=== PATIENT | male | born 1950 | race Caucasian/White ===

== ENCOUNTER 2018-01-04 12:33 | Emergency (ER) | payer OTHER ==
[~2018-01-04] VITALS: Ht 172.7 cm; Wt 101.0 kg
[2018-01-04 12:37] VITALS: TEMP 36.8; Ht 172.7 cm; Wt 101.0 kg
--- NOTE | 2018-01-04 12:50 | EMERGENCY ROOM VISIT NOTE ---
History Report prepared by Gerard: Arlen Hughes Under the Supervision of: Dr. Susu Tena D.O. First contact with patient: 12:42 Chief Complaint: FOOT PAIN Stated Complaint: LEG/FOOT RED History of Present Illness The patient is a 67 year old male who presents to the Emergency Room with complaints of worsening left foot pain for the past 2 weeks. He is diabetic and states he first noticed a sore on the outside of his left foot 2 weeks ago. The area has become increasingly red and painful. He rates his discomfort as a 6/10 in severity. The patient denies any drainage or pus from the wound. He admits he did experience a MRSA infection several years ago. The patient denies any recent fevers, chills, cough or cold symptoms, knee pain, abdominal pain, nausea , vomiting or diarrhea. He admits his bilateral feet occasionally feel numb, and his left foot has felt more numb than normal recently. He states his sugars have been "good" recently. 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 A total of 10 systems reviewed and were otherwise negative. Past Medical & Surgical Medical Problems: (1) Diabetes mellitus Social History Smoking Status: Never Smoker Alcohol Use: none Drug Use: none Marital Status: single Housing Status: lives alone Occupation Status: retired Current/Historical Medications Scheduled Aspirin (Aspirin Ec), 81 MG PO DAILY Carvedilol (Coreg), 6.25 MG PO BID Doxycycline Monohydrate (Monodox), 100 MG PO BID Furosemide (Lasix), 20 MG PO DAILY Insulin Glargine (Lantus), 20 UNITS SC QPM Lisinopril (Prinivil), 5 MG PO HS Potassium Ext Rel (Klor-Con), 20 MEQ PO DAILY Simvastatin (Zocor), 80 MG PO QPM Allergies Coded Allergies: Penicillins (Unverified Allergy, Severe, ., 01/04/18) Physical Exam Vital Signs Date Time Temp Pulse Resp B/P (MAP) Pulse Ox O2 Delivery O2 Flow Rate FiO2 01/04/18 15:02 89 21 159/62 100 01/04/18 14:14 87 16 155/91 95 Room Air 01/04/18 12:37 36.8 92 20 171/85 95 Room Air Physical Exam GENERAL: alert, well appearing, well nourished, no distress, non-toxic EYE EXAM: normal conjunctiva, PERRL and EOM's grossly intact OROPHARYNX: no exudate, no erythema, lips, buccal mucosa, and tongue normal and mucous membranes are moist NECK: supple, no nuchal rigidity, no adenopathy, non-tender LUNGS: Clear to auscultation. Normal chest wall mechanics HEART: no murmurs, S1 normal and S2 normal ABDOMEN: abdomen soft, non-tender, normo-active bowel sounds, no masses, no rebound or guarding. BACK: Back is symmetrical on inspection and there is no deformity, no midline tenderness, no CVA tenderness. SKIN: no rashes and no bruising UPPER EXTREMITIES: upper extremities are grossly normal. LOWER EXTREMITIES: Left foot has an area of crusted over ulceration, to the lateral aspect just proximal to the 5th MTP, no active drainage or bleeding, no foul odor, digits 3 through 5 as well as the dorsal aspect of the foot distally have edema and mild erythema. DP and PT pulses are normal. Sensation is intact. No other bony tenderness. NEURO EXAM: Normal sensorium, cranial nerves II-XII grossly intact, normal speech, no gross weakness of arms, no gross weakness of legs. Medical Decision & Procedures ER Provider Diagnostic Interpretation: Radiology results have been interpreted by the radiologist and reviewed by me. LEFT FOOT CT CT DOSE: 149.60 mGy.cm HISTORY: Infection lateral aspect of left foot, r/o osteo/absess TECHNIQUE: Multiaxial CT images of the left foot were performed and reformatted in the sagittal and coronal plane only the use of intravenous contrast. A dose lowering technique was utilized adhering to the principles of ALARA. COMPARISON: None. FINDINGS: Vascular calcifications are noted. Punctate calcification within the subcutaneous soft tissues at the plantar surface of the foot at the fourth MTP joint. No metallic radiopaque foreign bodies. Mild subcutaneous edema within the lateral aspect of the ankle and within the dorsal lateral aspect of the foot. No loculated fluid collections to suggest an abscess. No bony erosions or cortical destruction to suggest osteomyelitis. No fracture or dislocation within the foot. IMPRESSION: 1. Nonspecific subcutaneous edema within the lateral ankle and dorsal lateral aspect of the foot. 2. No underlying bony abnormality to suggest osteomyelitis. 3. No loculated fluid collections to suggest an abscess. Electronically signed by: Nagi Paulson M.D. 01/04/2018 2:33 PM Laboratory Results 01/04/18 13:01 Red Blood Count 4.64, Mean Corpuscular Volume 91.4, Mean Corpuscular Hemoglobin 31.9, Mean Corpuscular Hemoglobin Concent 34.9, Mean Platelet Volume 9.1, Neutrophils (%) (Auto) 71.6, Lymphocytes (%) (Auto) 19.0, Monocytes (%) (Auto) 6.7, Eosinophils (%) (Auto) 2.3, Basophils (%) (Auto) 0.2, Neutrophils # (Auto) 7.37, Lymphocytes # (Auto) 1.96, Monocytes # (Auto) 0.69, Eosinophils # (Auto) 0.24, Basophils # (Auto) 0.02 01/04/18 13:01 Test 01/04/18 13:01 01/04/18 13:08 White Blood Count 10.30 K/uL (4.8-10.8) Red Blood Count 4.64 M/uL (4.7-6.1) Hemoglobin 14.8 g/dL (14.0-18.0) Hematocrit 42.4 % (42-52) Mean Corpuscular Volume 91.4 fL (80-100) Mean Corpuscular Hemoglobin 31.9 pg (25-34) Mean Corpuscular Hemoglobin Concent 34.9 g/dl (32-36) Platelet Count 205 K/uL (130-400) Mean Platelet Volume 9.1 fL (7.4-10.4) Neutrophils (%) (Auto) 71.6 % Lymphocytes (%) (Auto) 19.0 % Monocytes (%) (Auto) 6.7 % Eosinophils (%) (Auto) 2.3 % Basophils (%) (Auto) 0.2 % Neutrophils # (Auto) 7.37 K/uL (1.4-6.5) Lymphocytes # (Auto) 1.96 K/uL (1.2-3.4) Monocytes # (Auto) 0.69 K/uL (0.11-0.59) Eosinophils # (Auto) 0.24 K/uL (0-0.5) Basophils # (Auto) 0.02 K/uL (0-0.2) RDW Standard Deviation 41.7 fL (36.4-46.3) RDW Coefficient of Variation 12.5 % (11.5-14.5) Immature Granulocyte % (Auto) 0.2 % Immature Granulocyte # (Auto) 0.02 K/uL (0.00-0.02) Prothrombin Time 10.9 SECONDS (9.0-12.0) Prothromb Time International Ratio 1.0 (0.9-1.1) Anion Gap 7.0 mmol/L (3-11) Est Creatinine Clear Calc Drug Dose 60.6 ml/min Estimated GFR () 60.7 Estimated GFR (Non- 52.4 BUN/Creatinine Ratio 17.5 (10-20) Calcium Level 8.8 mg/dl (8.5-10.1) Total Bilirubin 0.4 mg/dl (0.2-1) Aspartate Amino Transf (AST/SGOT) 23 U/L (15-37) Alanine Aminotransferase (ALT/SGPT) 30 U/L (12-78) Alkaline Phosphatase 74 U/L (45-117) Total Protein 7.9 gm/dl (6.4-8.2) Albumin 3.5 gm/dl (3.4-5.0) Globulin 4.4 gm/dl (2.5-4.0) Albumin/Globulin Ratio 0.8 (0.9-2) Bedside Lactic Acid Venous 1.32 mmol/L (0.90-1.70) Laboratory results per my review. Medications Administered Medications (Trade) Dose Ordered Sig/Yamilex Route Start Time Stop Time Status Last Admin Dose Admin Ceftriaxone Sodium (Rocephin Inj) 1 gm NOW STAT IV 01/04/18 13:49 01/04/18 13:50 DC 01/04/18 14:14 1 GM ED Course 1245: The patient was evaluated in room A2. A complete history and physical exam was performed. 1349: Rocephin 1 gm IV. 1440: I reevaluated the patient. I used a sterile marking pen and outlined the erythema on his foot and ankle. I discussed that he will need to follow up with his PCP and the wound care clinic and he verbalized complete understanding and agreement. Medical Decision Prior records reviewed and summarized as above. Triage Nursing notes reviewed. The patient's history was concerning for swelling and redness of the skin. Differential diagnosis: Etiologies such as cellulitis, abscess, MRSA infection, DVT, osteomyelitis, necrotizing fasciitis, dermatitis, drug eruption, as well as others were entertained. No evidence of osteomyelitis or abscess, I do not suspect necrotizing fasciitis. Likely with evolving cellulitis due to wounds noted on lateral aspect of left foot. Patient started on IV antibiotics here and covered for possible MRSA given prior history with antibiotics at discharge. Discussed with him close follow-up with family doctor as well as with the wound care clinic. Discussed symptoms to watch and return for. Area was outlined with a sterile marking pen prior to discharge and patient given strict instructions to return if worse. Patient verbalized understanding of all results as well as plan, was well-appearing at time of discharge and all questions answered bedside. Medication Reconcilliation Current Medication List: was personally reviewed by me Blood Pressure Screening Patient's blood pressure: Elevated blood pressure Blood pressure disposition: Referred to PCP Impression Primary Impression: Cellulitis Additional Impressions: Foot pain Hyperglycemia Scribe Attestation The scribe's documentation has been prepared under my direction and personally reviewed by me in its entirety. I confirm that the note above accurately reflects all work, treatment, procedures, and medical decision making performed by me. Departure Information Dispostion Home / Self-Care Prescriptions Doxycycline Monohydrate (Monodox) 100 Mg Cap 100 MG PO BID, #14 CAP Prov: Susu Tena, DO 01/04/18 Referrals No Doctor, Assigned (PCP) Patient Instructions My [facility] Additional Instructions Please follow up with your family doctor the beginning of the week to recheck your foot. Please make an appointment to be seen by the wound clinic also. If you have any worsening redness, develop fevers or chills, increased pain, have a cold sensation to the foot or increased numbness and tingling, develop dizziness, nausea or vomiting, or any other new concerns please return the emergency room. Please check her blood sugar levels daily, and keep track of them to discuss with her family doctor. If they are very high or very low, please return the emergency room. Please take the antibiotics as prescribed, do not take them on an empty stomach, and please consider using an over-the- counter probiotic while you're on antibiotics. Problem Qualifiers Primary Impression: Cellulitis Site of cellulitis: extremity Site of cellulitis of extremity: lower extremity Laterality: left Qualified Codes: L03.116 - Cellulitis of left lower limb Additional Impressions: Foot pain Laterality: left Qualified Codes: M79.672 - Pain in left foot
[2018-01-04] MEDS ORDERED: OPTIRAY 320 IV PRN (13:00)
[2018-01-04] MEDS ORDERED: CARV6.252 PO (13:01)
[2018-01-04] MEDS ORDERED: SIMV80TA5 PO (13:01)
[2018-01-04] MEDS ORDERED: INSDGI SC (13:01)
[2018-01-04] MEDS ORDERED: ASPI81TA28 PO (13:01)
[2018-01-04] MEDS ORDERED: FURO-85 PO (13:01)
[2018-01-04] MEDS ORDERED: POTA20TA16 PO (13:01)
[2018-01-04] MEDS ORDERED: LISI5TAB PO (13:01)
[2018-01-04 13:25] LABS: BASO % 0.2 %; BASO ABS # 0.02 K/uL (0-0.2); EOS % 2.3 %; EOS ABS # 0.24 K/uL (0-0.5); HEMATOCRIT 42.4 % (42-52); HEMOGLOBIN 14.8 g/dL (14.0-18.0); IG# 0.02 K/uL (0.00-0.02); LYMPH ABS # 1.96 K/uL (1.2-3.4); MEAN CELL VOLUME 91.4 fL (80-100); MEAN CORPUSCULAR HEMOGLOBIN 31.9 pg (25-34); MEAN CORPUSCULAR HGB CONC 34.9 g/dl (32-36); MEAN PLATELET VOLUME 9.1 fL (7.4-10.4); MONO % 6.7 %; MONO ABS # 0.69 K/uL (0.11-0.59); NEUT % 71.6 %; NEUT ABS # 7.37 K/uL (1.4-6.5); PLATELET COUNT 205 K/uL (130-400); RED CELL DISTRIBUTION WIDTH CV 12.5 % (11.5-14.5); RED CELL DISTRIBUTION WIDTH SD 41.7 fL (36.4-46.3)
[2018-01-04] MEDS ORDERED: CEFTRIAXONE SOD INJ 1 GM ADDVIAL IV STA (13:49)
[2018-01-04 13:51] LABS: ALBUMIN 3.5 gm/dl (3.4-5.0); CALCIUM 8.8 mg/dl (8.5-10.1); CREATININE 1.4 mg/dl (0.60-1.40); POTASSIUM 4.6 mmol/L (3.5-5.1)
[2018-01-04 13:54] LABS: TOTAL PROTEIN 7.9 gm/dl (6.4-8.2)
--- NOTE | 2018-01-04 14:34 | DIAGNOSTIC IMAGING REPORT ---
LEFT FOOT CT CT DOSE: 149.60 mGy.cm HISTORY: infection lateral aspect of left foot, r/o osteo/absess TECHNIQUE: Multiaxial CT images of the left foot were performed and reformatted in the sagittal and coronal plane only the use of intravenous contrast. A dose lowering technique was utilized adhering to the principles of ALARA. COMPARISON: None. FINDINGS: Vascular calcifications are noted. Punctate calcification within the subcutaneous soft tissues at the plantar surface of the foot at the fourth MTP joint. No metallic radiopaque foreign bodies. Mild subcutaneous edema within the lateral aspect of the ankle and within the dorsal lateral aspect of the foot. No loculated fluid collections to suggest an abscess. No bony erosions or cortical destruction to suggest osteomyelitis. No fracture or dislocation within the foot. IMPRESSION: 1. Nonspecific subcutaneous edema within the lateral ankle and dorsal lateral aspect of the foot. 2. No underlying bony abnormality to suggest osteomyelitis. 3. No loculated fluid collections to suggest an abscess. Electronically signed by: Nagi Paulson M.D. 01/04/2018 2:33 PM Dictated Date/Time: 01/04/2018 2:28 PM
[2018-01-04] MEDS ORDERED: DOXY100C76 PO (14:54)
[2018-01-04 15:02] VITALS: BP 159/62; PULSE 89; O2SAT 100
== END 2018-01-04 15:05 | disposition home or self-care (01) ==
LOC: C.EDB 12:36 → C.EDA 15:05
DX: L03.116 Cellulitis of left lower limb (principal); E11.65 Type 2 diabetes mellitus with hyperglycemia; Z79.82 Long term (current) use of aspirin; Z79.4 Long term (current) use of insulin; Z79.899 Other long term (current) drug therapy; Z88.0 Allergy status to penicillin

== ENCOUNTER → 2018-02-07 | Outpatient (CLI) | payer OTHER ==
[~2018-02-07] MED LIST: ASPI81TA28 PO; CARV6.252 PO; CHOL400T PO; CINN500T PO; CLOP1TAB15 PO; FURO-85 PO; INSDGI SC; LISI5TAB PO; METF-384 PO; POTA20TA16 PO; SIMV80TA5 PO
[2018-02-07 16:47] LABS: HEMATOCRIT 40.4 % (42-52); MEAN CELL VOLUME 91.4 fL (80-100); MEAN CORPUSCULAR HEMOGLOBIN 31.7 pg (25-34); MEAN CORPUSCULAR HGB CONC 34.7 g/dl (32-36); MEAN PLATELET VOLUME 9.1 fL (7.4-10.4); PLATELET COUNT 227 K/uL (130-400); RED CELL DISTRIBUTION WIDTH CV 12.6 % (11.5-14.5); RED CELL DISTRIBUTION WIDTH SD 42.4 fL (36.4-46.3)
[2018-02-07 16:53] LABS: BLOOD UREA NITROGEN 32 mg/dl (7-18); CARBON DIOXIDE 22 mmol/L (21-32); CREATININE 1.48 mg/dl (0.60-1.40); GLUCOSE 139 mg/dl (70-99); POTASSIUM 4.8 mmol/L (3.5-5.1); PTT PATIENT 27.5 SECONDS (21.0-31.0); SODIUM 137 mmol/L (136-145)
--- NOTE | 2018-02-07 23:32 | CONSULTATION REPORT ---
DATE OF CONSULTATION: 02/07/2018 CONSULTATION REQUESTED BY: Dr. Matias Dill. REASON FOR CONSULTATION: Left lower extremity ulceration, peripheral arterial disease. HISTORY OF PRESENT ILLNESS: Mr. Vincent is a very pleasant 67-year-old man with a history of insulin-dependent diabetes, hypertension, dyslipidemia, coronary artery disease, status post CABG and coronary stenting back in 2009 as well as recently diagnosed peripheral arterial disease in the setting of left lower extremity ulceration. Cardiology consulted for further management and recommendations regarding PAD. The patient reports no history of lower extremity ulcerations up until approximately 1 month ago when noticed a small ulcer on the left lateral aspect of his foot, which has subsequently increased in size. He did present to the [facility] Emergency Department back in December due to ulceration. At that time, underwent a CT scan with no signs of osteomyelitis. He was referred to the wound care center where he has been treated since 01/24/2018. Since that time with standard wound care has had limited improvement in wound size. He had a lower extremity arterial duplex which was completed on 01/21/2018. This study showed TBI with severe to critical disease, right 0.35, left 0.27, and arterial duplex notable for occluded right SFA with single vessel run-off. On the left, he had 75-99% stenosis in the left distal SFA prior to a complete occlusion with some reconstitution in the proximal popliteal artery prior to another occlusion in the distal popliteal with occluded proximal posterior tibial, anterior tibial and peroneal arteries with only a few collaterals to the right posterior tibial. The patient denies any prior history of any peripheral endovascular intervention. No history of prior blood clots. PAST MEDICAL HISTORY: 1. Coronary artery disease, status post CABG, prior stenting in 2009 at [facility]. 2. Peripheral arterial disease as discussed above. 3. Lower extremity ulceration as discussed above. 4. Hypertension. 5. Insulin-dependent diabetes, followed by Dr. Schwartz. 6. Dyslipidemia. 7. Question ischemic cardiomyopathy, followed by Dr. Francois for his cardiac issues. SOCIAL HISTORY: The patient lives alone in [place], [place]. He is here today with his sister. 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 Denies ongoing tobacco use. FAMILY HISTORY: Denies premature coronary artery disease or sudden cardiac . REVIEW OF SYSTEMS: Ten point review of systems completed and otherwise negative unless listed in HPI. PHYSICAL EXAMINATION: VITAL SIGNS: Temperature 36.0, pulse 76, blood pressure 138/85. GENERAL: The patient appears comfortable, in no acute distress. HEENT: Sclerae are anicteric. Oropharynx is clear. Mucous members are moist. NECK: Supple with no lymphadenopathy. LUNGS: Clear to auscultation bilaterally. CARDIAC: He has a regular rate and rhythm. He has a well-healed midline incision. ABDOMEN: Obese but soft, nontender. EXTREMITIES: Cool. He has left lower extremity pallor with a large superficial ulceration over the lateral aspect of his left foot with a pink base and surrounding pale ring. DP and PT pulses are nonpalpable. NEUROLOGIC: Nonfocal. PSYCHIATRIC: He is alert and appropriate. DATA: Lower extremity arterial duplex as described in the HPI. LABORATORY DATA: White blood cell count 10.3, hemoglobin 14, platelets of 227. Sodium 137, potassium 4.8, BUN of 32, creatinine of 1.48. IMPRESSION AND PLAN: 1. Peripheral arterial disease. 2. Slow healing left lower extremity ulceration. 3. Poorly controlled diabetes, on insulin. 4. History of coronary artery disease and questionable ischemic cardiomyopathy. 5. Mild renal insufficiency, baseline creatinine around 1.4. Mr. Vincent was noted on recent arterial duplex to have severe peripheral arterial disease with TBI suggestive of severe to critical disease with limited perfusion. In that setting, he has a slow nonhealing ulceration involving a large aspect of the left lateral foot. In that setting, feel high likelihood of benefit from revascularization and feel should proceed toward that end. Have reviewed the patient's arterial duplex and disease appears to involve distal SFA as well as the distal popliteal and all 3 tibial arteries. With his complex multi-level disease will plan on a diagnostic peripheral angiogram to be completed next week for intervention planning purposes. We will also obtain a limited arterial duplex to evaluate for potential pedal access sites if were to need retrograde access. Pending findings on peripheral angiogram, would plan to proceed at a later time next week with endovascular intervention. Discussed this with the patient and his sister and they are willing to proceed. Thank you for allowing us to participate in the care of this patient. [facility]
== END | disposition home or self-care (01) ==
LOC: C.LABPBG 15:15
PROVIDERS: ATTEND Internal Medicine Interventional Cardiology
DX: Z01.818 Encounter for other preprocedural examination (principal)

== ENCOUNTER → 2018-02-10 | Day surgery (SDC) | payer OTHER ==
[~2018-02-10] VITALS: Ht 170.2 cm; Wt 95.0 kg
[~2018-02-10] MED LIST changes: +FENTANYL CITRATE INJ 50 MCG/1 ML 2 ML VIAL ONE; +HEPARIN SOD (PORCINE) 1000 UNIT/ML 10 ML VIAL ONE; +LIDOCAINE HCL 1% 20 ML VIAL ONE; +MIDAZOLAM HCL 1 MG/ML 2ML VIAL ONE; +NITROGLYCERIN 2% OINTMENT 30GM TUBE EXT ONE; +NITROGLYCERIN/D5W 100MCG/ML 20ML SYR ONE; +NiCARDipine HCL INJ 2.5 MG/ML 10 ML AMP ONE
[2018-02-10 07:12] VITALS: BP 144/81; PULSE 88; TEMP 36.8; O2SAT 96; Ht 170.2 cm; Wt 95.0 kg
--- NOTE | 2018-02-10 07:56 | History & Physical Bridge Note ---
H&P Re-Evaluation Bridge Note: I have examined the patient, reviewed the History & Physical and in the interval since the performance of the History & Physical I have noted the following changes of clinical significance: No changes noted
--- NOTE | 2018-02-10 07:57 | Pre Sedation Assessment ---
Pre Sedation Assessment General Date of Sedation: Feb 10, 2018. Vital Signs Past 12 Hours Date Time Temp Pulse Resp B/P (MAP) Pulse Ox O2 Delivery O2 Flow Rate FiO2 02/10/18 07:12 36.8 88 16 144/81 (102) 96 Room Air Review Cardiovascular: regular rate, rhythm, no edema Lungs: chest non-tender, lungs clear Pre-Sedation Airway Assessment Smoking Status: Never Smoker Hx of Sleep Apnea: No Hx of difficult intubation: No Short Thick Neck: Yes Thyro-mental Distance: < or =3 Finger Breadths Oral Cavity: Loose Teeth, Chipped Teeth Mallampati Classification: Class III ASA Classification: Class III NPO Status Date of Last Intake of Fluids: Feb 09, 2018 Time of Last Intake of Fluids: 2200 Date of Last Intake of Solids: Feb 09, 2018 Time of Last Intake of Solids: 2100 Procedure Planning Contraindications for Sedation: None Current Medications Reviewed: Yes Notes The planned sedation has been discussed with the patient. Informed Consent was obtained. I have identified the patient, determined the appropriateness of sedation and have assessed the patient immediately prior to the procedure. All medicine(s) and interventions are by my order.
--- NOTE | 2018-02-10 10:47 | Post Sedation Assessment ---
Post Sedation Assessment General Date of Sedation Feb 10, 2018. Vital Signs: Vital Signs Past 12 Hours Date Time Temp Pulse Resp B/P (MAP) Pulse Ox O2 Delivery O2 Flow Rate FiO2 02/10/18 07:12 36.8 88 16 144/81 (102) 96 Room Air Post Procedure Recovery Score Activity: (2) Moves 4 extremities * Respiration: (2) Deep breath/cough Circulation: (2) +/-20% PreAnes Value Consciousness: (2) Fully Awake Oxygen Saturation: (1) O2 needed for >90% Discharge Sedation Level of Care: Fast Track Phase II Post Sedation Plan On clinical assessment, the patient appears to have tolerated the sedation without complications. Patient is recovering as anticipated. Patient will continue to be monitored by nursing and may be discharged when sedation discharge criteria are met per below protocol. Upon Completions of procedure and additional 15 minutes continue every 5 minute vital signs and the P.A.R. score; then discharge to a Phase I or Fast Track to Phase II per the following guidelines: * Discharge Patient to appropriate Phase II area if PAR is 8 or greater or return to pre- procedure baseline. The post - procedure orders will be as directed. * If PAR score is less than 8 or not return to pre-procedure baseline then patient will follow Phase I monitoring till PAR is reached for Phase II. The Phase I may be done in procedure room or may call to secure a Phase I area. * If naloxone or flumazenil are used for reversal, hold in Phase I for an additional 60 -120 minutes before discharge to Phase II. Please call the Sedation Physician to re-evaluate and complete post-note for discharge to Phase II area. Do NOT discharge from procedure sedation or Phase 1 until post- sedation evaluation note is complete by procedure /sedation MD Sedation Discharge Instructions to be given to the patient at discharge to home.
--- NOTE | 2018-02-10 11:01 | DIAGNOSTIC IMAGING REPORT ---
ULTRASOUND LEFT LOWER EXTREMITY ARTERIAL CLINICAL HISTORY: Peripheral arterial disease. COMPARISON STUDY: No priors. TECHNIQUE: Real-time, grayscale, and color Doppler sonography of the arteries of the left lower extremity is performed from the popliteal artery to the foot. The examination was performed the casting house laborer with Dr. Barcenas at the bedside. FINDINGS: No flow was identified in the visualized left lower extremity arteries. There is no flow seen within the mid to distal popliteal artery, the anterior tibial artery, the posterior tibial artery, the peroneal artery, or the dorsalis pedis artery. Advanced atherosclerotic plaque is noted in the regional vessels. IMPRESSION: No significant flow is identified in the visualized left lower extremity arteries as detailed above. Dictated: 02/10/2018 10:14 AM Transcribed: 02/10/2018 11:01 AM [email or web address] Electronically signed by: Lex Lira M.D. 02/10/2018 11:08 AM Dictated Date/Time: 02/10/2018 10:14 AM
--- NOTE | 2018-02-10 11:15 | [facility] Operative Report ---
Operative Report Operative Date Feb 10, 2018. Pre-Operative Diagnosis Peripheral arterial disease Critical limb ischemia Post-Operative Diagnosis Peripheral arterial disease Procedure(s) Performed Bilateral lower extremity angiogram Surgeon Narinder Welder Gas Automatic Surgeon(s) Cory Estimated Blood Loss 15 Findings Abdominal Aorta -- Calcified aorta without significant stenosis or aneurysm. Renals - Left 70-80% ostial stenosis; Right 30-40% ostial stenosis Left lower extremity: Common iliac - Minimal disease External iliac - Minimal disease Internal iliac - Minimal disease SUPERVISOR SCREEN PRINTING - 40% stenosis with calcified nodule Profunda - Mild diffuse distal disease SFA - Diffuse mild to moderate proximal to mid disease. Distal SFA/popliteal - 80% stenosis prior to 99% stenosis at origin of popliteal artery; Distal popliteal - Occluded TPT - Occluded AT - Occluded, short segment or reconstitution proximally then occluded to foot PT - Occluded, short segment of distal reconstitution Peroneal - Occluded, short segment of mid vessel reconstitution then occluded to foot Right lower extremity: Common iliac - Minimal disease External iliac - Minimal disease Internal iliac - Minimal disease SUPERVISOR SCREEN PRINTING - Minimal disease Profunda - Minimal disease SFA - Mild proximal diffuse atherosclerosis, heavily calcified with 90% mid segment stenosis, occluded distal SFA, reconstitutes at junction of popliteal TPT - occluded AT - occluded PT - occluded Peroneal - reconstitutes in mid segment and continues to foot. SUMMARY: 1. Left lower extremity with subtotally occluded distal SFA disease, occluded distal popliteal artery. Tibial vessels occluded with limited collaterals to foot. 2. Right lower extremity with calcified occluded mid-distal SFA, occluded distal popliteal artery. Tibial vessels occluded with reconstitution of peroneal artery. 3. 90% ostial left renal artery stenosis Specimens None Drains None Anesthesia Type IV Sedat Cons RN Only Complication(s) none Disposition no construction or leak gang laborer holding area Indications Peripheral arterial disease Non-healing lower extremity ulceration Description of Procedure Right radial artery access 5Fr Abdominal angiography with pigtail. Selective angiography of bilateral lower extremities with MPA catheter placed to external iliac arteries TR Band placed for closure. I attest to the content of the Intraoperative Record and any orders documented therein. Any exceptions are noted below.
[2018-02-10 11:30] VITALS: BP 136/85; PULSE 84; O2SAT 95
--- NOTE | 2018-02-10 11:31 | Discharge Instructions ---
Discharge Instructions Procedure Procedure Date: Feb 10, 2018. Reason for Visit: *Angiogram* Pvd . Discharge Discharge Date: Feb 10, 2018. Discharge Diagnosis: Peripheral arterial disease Last Recorded Wt (Kilograms): 95 Medications Restart Stopped Medication(s): - HOLD METFORMIN FOR NEXT 5 DAYS - TAKE 1/2 SCHEDULED INSULIN THE NIGHT BEFORE PROCEDURE - DO NOT TAKE FUROSEMIDE THE MORNING OF PROCEDURE - OK TO TAKE ASPIRIN/PLAVIX MORNING OF PROCEDURE - CAN TAKE BLOOD PRESSURE MEDICINE MORNING OF PROCEDURE Anesthesia Post Anesthesia Instructions: If you have had General Anesthesia or IV Sedation: * Do not drive today. * Resume driving when surgeon permits. * Do not make important decisions or sign legal documents today. * Call surgeon for: 1. Temperature elevations greater than 101 degrees F. 2. Uncontrollable pain. 3. Excessive bleeding. 4. Persistent nausea and vomiting. 5. Medication intolerance (nausea, vomiting or rash). * For nausea and vomiting use only clear liquids such as: tea, soda, bouillon until nausea subsides, then gradually increase diet as tolerated. * If you have any concerns or questions, call your surgeon's office. If physician is unavailable and it is an emergency, call 911 or go to the nearest emergency room. Instructions Activity Recommendations: limitations as noted below Recommended Home Diet: resume previous diet, low sodium, low cholesterol Allergies: Coded Allergies: Penicillins (Unverified Allergy, Severe, ., 01/04/18) Follow Up Additional Instructions: ACTIVITY RECOMMENDATIONS: Excess manipulation of the wrist should be avoided for the next 24-48 hours. * No lifting over 2 pounds (approximately a 1/2 gallon of milk) with the utilized arm for 24 hours. * No strenuous activity such as bowling or tennis for 3 days. * Keep the site of the procedure covered with a bandage for 24 hours. *You may shower the day after the procedure. Do not take a tub bath or submerge the puncture site in water for the next 3 days. *Do not operate any motorized equipment for 3 days. SPECIAL CARE INSTRUCTIONS: The site may be slightly bruised and sore following your procedure. Should any of the following occur, contact the DrTalia who performed your procedure. 1. Redness/inflammation, swelling, chills, or fever, or colored drainage at procedure site within 3-7 days after your procedure. 2. Coldness, discoloration, ongoing numbness, severe pain, or swelling. Expect mild tingling of hand and tenderness at the puncture site for up to three days. If this persists beyond three days, or other symptoms develop, notify the Dr. who performed your procedure. BLEEDING: If the procedure site on your wrist begins to bleed, do not panic 1. Place 1 or 2 fingers firmly just slightly above the insertion site to stop the bleeding. You may be able to feel your pulse as you hold pressure. 2. Lift your finger after 5 minutes to see if the bleeding has stopped. 3. Once the bleeding has stopped, gently wipe the wrist area clean with a bandage. * If the bleeding from your wrist does not stop after 10 minutes, or if there is a large amount of bleeding or spurting, call 911 (do not drive yourself to the hospital). SKIN IRRITATION: * You may experience some redness and/or swelling in the area where radiation was administered. If any skin irritation occurs, please contact your family physician. FOLLOW UP VISIT: Keep any scheduled doctor appointments. Follow-up with: Return for endovascular intervention on Saturday02/10/2018. [place] Recommendations: Call your doctor if: * Temperature above 101 degrees * Pain not relieved by pain medicine ordered * There is increased drainage or redness from any incision * You have any unanswered questions or concerns. Your Doctors Instructions noted above were prepared by provider Lv Barcenas. Patient Signature Section: Patient Instructions Signature Page Pepe Carlton Patient (or Guardian) Signature/Date: I have read and understand the instructions given to me by my caregivers. Caregiver/RN/Doctor Signature/Date: The above-named patient and/or guardian has received patient instructions on this date. + Original Patient Signature Page (only) stays with chart. Please make copy for patient.
== END | disposition home or self-care (01) ==
LOC: C.CATH 06:45
PROVIDERS: ATTEND Internal Medicine Interventional Cardiology
DX: I73.9 Peripheral vascular disease, unspecified (principal); L97.929 Non-pressure chronic ulcer of unspecified part of left lower leg with unspecified severity; E11.9 Type 2 diabetes mellitus without complications; I10 Essential (primary) hypertension; E78.5 Hyperlipidemia, unspecified; I25.10 Atherosclerotic heart disease of native coronary artery without angina pectoris; Z95.1 Presence of aortocoronary bypass graft; Z95.5 Presence of coronary angioplasty implant and graft; I99.8 Other disorder of circulatory system

== ENCOUNTER 2018-02-12 05:39 | Day surgery (SDC) | payer OTHER ==
[~2018-02-12] VITALS: Ht 170.2 cm; Wt 95.4 kg
[2018-02-12] VITALS (8 sets, daily range): BP systolic 121–162; BP diastolic 73–94; PULSE 81–100; TEMP 36.6–37.2; O2SAT 94–98; Ht 170.2 cm; Wt 95.4 kg
[~2018-02-12 05:39] MED LIST changes: -CHOL400T PO; -CINN500T PO; -FENTANYL CITRATE INJ 50 MCG/1 ML 2 ML VIAL ONE; -HEPARIN SOD (PORCINE) 1000 UNIT/ML 10 ML VIAL ONE; -LIDOCAINE HCL 1% 20 ML VIAL ONE; -MIDAZOLAM HCL 1 MG/ML 2ML VIAL ONE; -NITROGLYCERIN 2% OINTMENT 30GM TUBE EXT ONE; -NITROGLYCERIN/D5W 100MCG/ML 20ML SYR ONE; -NiCARDipine HCL INJ 2.5 MG/ML 10 ML AMP ONE
[2018-02-12] MEDS ORDERED: NURSING VERBAL MED ORDER ONE (06:30)
[2018-02-12] MEDS ORDERED: SODIUM CHLORIDE 0.9% 1000ML 1,000 ML IV SCH ×2 (06:30→15:00)
[2018-02-12] MEDS ORDERED: CINN500T PO (06:39)
[2018-02-12] MEDS ORDERED: CHOL400T PO (06:39)
--- NOTE | 2018-02-12 06:46 | Pre Sedation Assessment ---
Pre Sedation Assessment General Date of Sedation: Feb 12, 2018. Review Cardiovascular: regular rate, rhythm, no edema Lungs: chest non-tender, lungs clear Pre-Sedation Airway Assessment Smoking Status: Never Smoker Hx of Sleep Apnea: No Hx of difficult intubation: No Short Thick Neck: No Thyro-mental Distance: > 3 Finger Breadths Oral Cavity: WNL Mallampati Classification: Class III ASA Classification: Class III NPO Status Date of Last Intake of Fluids: Feb 11, 2018 Time of Last Intake of Fluids: 0 Date of Last Intake of Solids: Feb 11, 2018 Time of Last Intake of Solids: 2000 Procedure Planning Contraindications for Sedation: None Current Medications Reviewed: Yes Notes The planned sedation has been discussed with the patient. Informed Consent was obtained. I have identified the patient, determined the appropriateness of sedation and have assessed the patient immediately prior to the procedure. All medicine(s) and interventions are by my order.
[2018-02-12] MEDS ORDERED: FENTANYL CITRATE INJ 50 MCG/1 ML 2 ML VIAL ONE ×2 (07:45→11:09)
[2018-02-12] MEDS ORDERED: NITROGLYCERIN 5 MG/ML 10 ML VIAL ONE (07:45)
[2018-02-12] MEDS ORDERED: NiCARDipine HCL INJ 2.5 MG/ML 10 ML AMP ONE (07:45)
[2018-02-12] MEDS ORDERED: MIDAZOLAM HCL 1 MG/ML 2ML VIAL ONE ×2 (07:46→11:08)
[2018-02-12] MEDS ORDERED: HEPARIN SOD (PORCINE) 1000 UNIT/ML 10 ML VIAL ONE ×2 (07:46→11:26)
[2018-02-12] MEDS ORDERED: NITROGLYCERIN/D5W 100MCG/ML 20ML SYR ONE (07:56)
[2018-02-12] MEDS ORDERED: MIDAZOLAM HCL 1 MG/ML 2ML VIAL IV ONE ×3 (08:40→11:11)
[2018-02-12] MEDS ORDERED: LIDOCAINE HCL 1% 20 ML VIAL INJ ONE (08:41)
[2018-02-12] MEDS ORDERED: FENTANYL CITRATE INJ 50 MCG/1 ML 2 ML VIAL IV ONE ×3 (08:50→11:11)
[2018-02-12] MEDS ORDERED: HEPARIN SOD (PORCINE) 1000 UNIT/ML 10 ML VIAL IV ONE ×2 (09:06→10:29)
[2018-02-12] MEDS ORDERED: ORM MISCELLANEOUS MED XX ONE ×3 (11:45→12:12)
[2018-02-12] MEDS ORDERED: IODIXANOL (VISIPAQUE) 270 MG/ML 150ML XX ONE (12:17)
[2018-02-12] MEDS ORDERED: CLOPIDOGREL BISULFATE 300 MG TAB PO STA (12:29)
[2018-02-12] MEDS ORDERED: MoRPHine SULFATE 2 MG/ML CARP IV PRN (12:30)
[2018-02-12] MEDS ORDERED: GLUCOSE 40% GEL 15 GM TUBE PO PRN (12:30)
[2018-02-12] MEDS ORDERED: ONDANSETRON INJ 2 MG/ML 2 ML VIAL IV PRN (12:30)
[2018-02-12] MEDS ORDERED: ASPIRIN 325 MG ECTAB PO ONE (12:30)
[2018-02-12] MEDS ORDERED: DEXTROSE 50% 50 ML SYR IV PRN (12:30)
[2018-02-12] MEDS ORDERED: ACETAMINOPHEN 325 MG TAB PO PRN (12:30)
[2018-02-12] MEDS ORDERED: GLUCAGON FOR INJ 1 MG VIAL SQ PRN (12:30)
[2018-02-12] MEDS ORDERED: GLUCOSE 10 TABS/TUBE PO PRN (12:30)
--- NOTE | 2018-02-12 12:37 | Post Sedation Assessment ---
Post Sedation Assessment General Date of Sedation Feb 12, 2018. Vital Signs: Vital Signs Past 12 Hours Date Time Temp Pulse Resp B/P (MAP) Pulse Ox O2 Delivery O2 Flow Rate FiO2 02/12/18 12:25 82 16 149/84 94 Room Air 02/12/18 12:20 Oxymask 02/12/18 12:15 Oxymask 02/12/18 12:10 Oxymask 02/12/18 12:05 Oxymask 02/12/18 12:00 Oxymask 02/12/18 11:55 Oxymask 02/12/18 11:50 Oxymask 02/12/18 11:45 Oxymask 02/12/18 11:40 Oxymask 02/12/18 11:35 Oxymask 6 02/12/18 11:30 Oxymask 02/12/18 11:25 Oxymask 02/12/18 11:20 Oxymask 02/12/18 11:15 Oxymask 02/12/18 11:10 Oxymask 02/12/18 11:05 Oxymask 02/12/18 11:00 Oxymask 02/12/18 10:55 Oxymask 02/12/18 10:50 Oxymask 02/12/18 10:45 Oxymask 02/12/18 10:40 Oxymask 02/12/18 10:35 Oxymask 02/12/18 10:30 Oxymask 02/12/18 10:25 Oxymask 02/12/18 10:20 Oxymask 02/12/18 10:15 Oxymask 02/12/18 10:10 Oxymask 02/12/18 10:05 Oxymask 02/12/18 10:00 Oxymask 02/12/18 09:55 Oxymask 02/12/18 09:50 Oxymask 02/12/18 09:45 Oxymask 02/12/18 09:40 Oxymask 02/12/18 09:35 Oxymask 02/12/18 09:30 Oxymask 02/12/18 09:25 Oxymask 02/12/18 09:20 Oxymask 02/12/18 09:15 Oxymask 02/12/18 09:10 Oxymask 02/12/18 09:05 Oxymask 02/12/18 09:00 Oxymask 02/12/18 08:55 Oxymask 02/12/18 08:50 Oxymask 02/12/18 08:45 77 13 168/82 95 Oxymask 2 02/12/18 08:40 80 18 166/78 99 Oxymask 2 02/12/18 08:15 82 16 181/84 96 Oxymask 2 02/12/18 06:42 37.2 81 18 140/76 (97) 96 Room Air Post Procedure Recovery Score Activity: (2) Moves 4 extremities * Respiration: (2) Deep breath/cough Circulation: (2) +/-20% PreAnes Value Consciousness: (2) Fully Awake Oxygen Saturation: (2) > 92% On Room Air Post Anesthesia Score: 10 Discharge Sedation Level of Care: Fast Track Phase II Post Sedation Plan On clinical assessment, the patient appears to have tolerated the sedation without complications. Patient is recovering as anticipated. Patient will continue to be monitored by nursing and may be discharged when sedation discharge criteria are met per below protocol. Upon Completions of procedure and additional 15 minutes continue every 5 minute vital signs and the P.A.R. score; then discharge to a Phase I or Fast Track to Phase II per the following guidelines: * Discharge Patient to appropriate Phase II area if PAR is 8 or greater or return to pre- procedure baseline. The post - procedure orders will be as directed. * If PAR score is less than 8 or not return to pre-procedure baseline then patient will follow Phase I monitoring till PAR is reached for Phase II. The Phase I may be done in procedure room or may call to secure a Phase I area. * If naloxone or flumazenil are used for reversal, hold in Phase I for an additional 60 -120 minutes before discharge to Phase II. Please call the Sedation Physician to re-evaluate and complete post-note for discharge to Phase II area. Do NOT discharge from procedure sedation or Phase 1 until post- sedation evaluation note is complete by procedure /sedation MD Sedation Discharge Instructions to be given to the patient at discharge to home.
--- NOTE | 2018-02-12 12:47 | [facility] Operative Report ---
Operative Report Operative Date Feb 12, 2018. Pre-Operative Diagnosis Peripheral arterial disease, critical limb ischemia Post-Operative Diagnosis peripheral arterial disease, critical limb ischemia Procedure(s) Performed Bilateral Lower Extremity Angiogram, Percutaneous Transluminal Angioplasty and Mechanical Atherectomy Left Distal Superficial Femoral Artery/Popliteal, Percutaneous Transluminal Angioplasty Left Anterior Tibial, Mechanical Closure Right Femoral Artery, Moderate Concious Sedation [address] Barcenas Crane [place] Surgeon(s) none Estimated Blood Loss 36 ml Findings See Operative report from 02/10/2018 for full details of patient's lower extremity angiography. Briefly patient found to have an occluded distal SFA, distal popliteal, AT, PT and peroneal. Peroneal fills distally via collaterals. Specimens none Drains None Anesthesia Type IV Sedat Cons RN Only Complication(s) none Disposition Telemetry Description of Procedure -ultrasound guided access of right MACHINIST 2ND SHIFT -up and over with HNK catheter -7Fr 45 cm destination sheath placed to left MACHINIST 2ND SHIFT -SFA lesions crossed with quickcross and glide-advantage wire -Distal popliteal crossed with glide-advantage and AT accessed with 0.14 command wire -Able to wire to distal AT with command, confianza wire -Corsair catheter advanced to distal vessel after ballooning with 1.5 balloon. -AT treated with prolonged 2.0 and 2.5 balloon inflations -distal popliteal treated with 4.0 balloon inflation -distal SFA/popliteal treated with orbital atherectomy (CSI 1.5 classic crown). -lesion pre-dilated with 5.0 balloon. -distal SFA/popliteal treated with 5.0 x 150 Medtronic TRAE. Post procedure good angiographic result with brisk inline flow to foot via AT. Preserved collateral flow to peroneal/?PT. No apparent complications. Right MACHINIST 2ND SHIFT closed with Mynx device. Total contrast 180 cc. Summary: 1. Successful atherectomy and angioplasty of left distal SFA/popliteal with drug -eluting balloon 2. Successful angioplasty of distal left popliteal and left AT. I attest to the content of the Intraoperative Record and any orders documented therein. Any exceptions are noted below.
[2018-02-12] MEDS ORDERED: IV FLUIDS COMPLETED PRN (14:45)
[2018-02-12] MEDS: INSULIN ASPART 100 UNITS/ML 3 ML PEN SC SCH ×2 (16:15→21:00)
[2018-02-12] MEDS ORDERED: INSULIN GLARGINE SOLOSTAR 100 UNITS/ML 3 ML PEN SC SCH (21:00)
[2018-02-12] MEDS ORDERED: LISINOPRIL 5 MG TAB PO SCH (21:00)
[2018-02-12] MEDS: CARVEDILOL 6.25 MG TAB PO SCH (21:00)
[2018-02-13 03:47] VITALS: BP 137/86; PULSE 96; TEMP 36.6; O2SAT 96
[2018-02-13 06:45] VITALS: BP 146/80; PULSE 92; TEMP 36.9; O2SAT 96
[2018-02-13] MEDS: INSULIN ASPART 100 UNITS/ML 3 ML PEN SC SCH ×2 (07:00→12:00)
[2018-02-13 08:10] LABS: HEMATOCRIT 40.4 % (42-52); HEMOGLOBIN 13.6 g/dL (14.0-18.0)
[2018-02-13 08:42] LABS: CALCIUM 8.9 mg/dl (8.5-10.1); CREATININE 1.04 mg/dl (0.60-1.40)
[2018-02-13] MEDS: CARVEDILOL 6.25 MG TAB PO SCH (08:56)
[2018-02-13] MEDS ORDERED: ASPIRIN 81 MG ECTAB PO SCH (09:00)
[2018-02-13] MEDS ORDERED: CLOPIDOGREL BISULFATE 75 MG TAB PO SCH (09:00)
[2018-02-13 10:53] VITALS: BP 128/79; PULSE 79; TEMP 36.6; O2SAT 95
--- NOTE | 2018-02-13 13:04 | Discharge Instructions ---
Discharge Instructions Procedure Procedure Date: Feb 13, 2018. Reason for Visit: Peripheral Vascular Disease. Discharge Discharge Date: Feb 13, 2018. Discharge Diagnosis: Peripheral vascular disease Last Recorded Wt (Kilograms): 95.400 Medications Restart Stopped Medication(s): Can resume Metformin 48 hours after procedure. OK to start back on Saturday. Anesthesia Post Anesthesia Instructions: Instructions Activity Recommendations: limitations as noted below Recommended Home Diet: low sodium, low cholesterol Allergies: Coded Allergies: Penicillins (Unverified Allergy, Severe, SEVERE RASH, 02/12/18) Follow Up Additional Instructions: ACTIVITY RECOMMENDATIONS: It is common to feel weak and fatigue for a few days. * Do not drive or operate any motorized equipment for the next 2 days. * Limit stair usage (2 or 3 trips a day only) for the next three days. * Do not lift anything heavier than 10 pounds for the next three days. * Do not engage in vigorous exercise or any sports for the next five days. * You may shower the day after your procedure, but do not immerse the area for three days. Cleanse the site gently with soap and water. SPECIAL CARE INSTRUCTIONS: * You may replace the pressure dressing or band-aid the morning after the procedure. * After your procedure, it is normal to have a small bruise or small lump at the site. Examine your site daily for any change in the bruise or lump, redness, swelling, drainage or numbness. Notify your doctor if any change. BLEEDING: * If there is a small amount of bleeding at the site, lie down and apply firm pressure with a clean cloth for ten minutes. When the bleeding stops, lie quietly keeping the procedure limb straight for six hours. Notify your doctor as soon as possible. * If the bleeding does not stop after ten minutes or if there is a large amount of bleeding or spurting, call 911 immediately. Continue to lie down and hold firm pressure until help arrives. SKIN IRRITATION: * You may experience some redness and/or swelling in the area where radiation was administered. If any skin irritation occurs, please contact your family physician. FOLLOW UP VISIT: Keep any scheduled doctor appointments. Follow-up with: Wound clinic as scheduled Dr. Barcenas in 2-3 weeks with repeat [facility] Recommendations: Call your doctor if: * Temperature above 101 degrees * Pain not relieved by pain medicine ordered * There is increased drainage or redness from any incision * You have any unanswered questions or concerns. Your Doctors Instructions noted above were prepared by provider Lv Barcenas. Patient Signature Section: Patient Instructions Signature Page Pepe Vincent Patient (or Guardian) Signature/Date: I have read and understand the instructions given to me by my caregivers. Caregiver/RN/Doctor Signature/Date: The above-named patient and/or guardian has received patient instructions on this date. + Original Patient Signature Page (only) stays with chart. Please make copy for patient.
[2018-02-13 13:08] VITALS: BP 128/79; PULSE 79; TEMP 36.6; O2SAT 95
== END 2018-02-13 13:56 | disposition home or self-care (01) ==
LOC: C.ACU 05:39 → C.2T 12:36 → ENRESERV 13:57
PROVIDERS: ADMIT Internal Medicine Interventional Cardiology; ATTEND Internal Medicine Interventional Cardiology
DX: I73.9 Peripheral vascular disease, unspecified (principal); I99.8 Other disorder of circulatory system; E11.9 Type 2 diabetes mellitus without complications; L97.929 Non-pressure chronic ulcer of unspecified part of left lower leg with unspecified severity; I10 Essential (primary) hypertension; E78.5 Hyperlipidemia, unspecified; I25.10 Atherosclerotic heart disease of native coronary artery without angina pectoris; Z95.1 Presence of aortocoronary bypass graft; Z79.4 Long term (current) use of insulin

== ENCOUNTER → 2018-02-26 | Outpatient (CLI) | payer OTHER ==
[~2018-02-26] MED LIST changes: +CHOL400T PO; +CINN500T PO; -METF-384 PO; +OPTIRAY 320 IV PRN; +POTA-639 PO; -POTA20TA16 PO; -SIMV80TA5 PO
--- NOTE | 2018-02-26 15:41 | DIAGNOSTIC IMAGING REPORT ---
LEFT FOOT CT CT DOSE: 317.67 mGy.cm HISTORY: Left foot fifth toe nonhealing wound. Assess for osteomyelitis. TECHNIQUE: Multiaxial CT images of the left foot were performed and reformatted in the sagittal and coronal plane without the use of contrast. A dose lowering technique was utilized adhering to the principles of ALARA. COMPARISON: Left foot CT 01/04/2018. FINDINGS: Extensive subcutaneous edema seen within the left ankle and foot. There is also skin thickening and suggestion of small skin ulcerations at the fifth toe/fifth MTP joint. No loculated fluid collections to suggest an abscess. No radiopaque foreign bodies. Vascular calcifications are noted. No definite areas of cortical destruction or erosions within the foot to suggest osteomyelitis. IMPRESSION: 1. No definite areas of cortical destruction or erosions within the foot to suggest osteomyelitis. 2. Diffuse subcutaneous edema within the left ankle/foot. 3. Soft tissue swelling within the left fifth toe/fifth MTP joint suggestive of a cellulitis. There may be a few small skin ulcerations at this location. No loculated fluid collections to suggest an abscess. Electronically signed by: Nagi Paulson M.D. 02/26/2018 3:40 PM Dictated Date/Time: 02/26/2018 3:33 PM
== END | disposition home or self-care (01) ==
LOC: C.CTS 14:05
PROVIDERS: ATTEND Physician Assistant
DX: S91.105A Unspecified open wound of left lesser toe(s) without damage to nail, initial encounter (principal); X58.XXXA Exposure to other specified factors, initial encounter

== ENCOUNTER 2019-08-29 11:04 | Inpatient (IN) ==
[2019-08-29] MEDS ORDERED: ALBUT/IPRATROP 3MG/0.5MG NEB 3 ML VIAL INH STA (11:17)
--- NOTE | 2019-08-29 11:38 | XRay Report ---
XR chest 1V portable HISTORY: 69 years-old Male Dyspnea acute shortness of breath COMPARISON: Chest radiograph 05/28/2018 TECHNIQUE: Portable AP view of the chest FINDINGS: Cardiac silhouette is enlarged, unchanged. Prior median sternotomy. There is mild pulmonary vascular congestion with chronic midlung and bibasilar interstitial coarsening. No pneumothorax, large pleural effusion or lobar airspace consolidation. Degenerative changes of the shoulders and spine. IMPRESSION: 1. Cardiomegaly with pulmonary vascular congestion. 2. Mild chronic interstitial coarsening. The above report was generated using voice recognition software. It may contain grammatical, syntax o r spelling errors. Electronically signed by: Paul Fleming M.D. 08/29/2019 11:37 AM
[2019-08-29 11:45] LABS: Basophils # (auto) 0.01 K/uL (0-0.2); Basophils % (auto) 0.1 %; Hematocrit (blood only) 42.7 % (42-52); Hemoglobin 14.1 g/dL (14.0-18.0); Immature Granulocytes # (auto) 0.09 K/uL (0.00-0.02); Immature Granulocytes % (auto) 0.9 %; Lymphocytes # (auto) 0.47 K/uL (1.2-3.4); Lymphocytes % (auto) 4.5 %; Mean Corpuscular Hemoglobin 32.6 pg (25-34); Mean Corpuscular Volume 98.6 fL (80-100); Mean Platelet Volume 9.7 fL (7.4-10.4); Monocytes # (auto) 1.19 K/uL (0.11-0.59); Monocytes % (auto) 11.5 %; Neutrophils # (auto) 8.59 K/uL (1.4-6.5); Nucleated RBC # (auto) 0.02 K/uL (0-0); Nucleated RBC % (auto) 0.2 %; Platelet Count 248 K/uL (130-400); RDW Coefficient of Variation 12.9 % (11.5-14.5); RDW Standard Deviation 46.7 fL (36.4-46.3); Red Blood Count 4.33 M/uL (4.7-6.1); White Blood Count 10.35 K/uL (4.8-10.8)
[2019-08-29 12:01] LABS: INR 1.2 (0.9-1.1); Partial Thromboplastin Time 28.3 Seconds (21.0-31.0); Prothrombin Time 12.2 Seconds (9.0-12.0)
[2019-08-29 12:10] LABS: Albumin Globulin Ratio 0.6 (0.9-2); BUN Creatinine Ratio 23.8 (10-20); Bilirubin,Total 0.6 mg/dl (0.2-1); Calcium 8.4 mg/dl (8.5-10.1); Creatinine Clr Calc Pharmacy 49.7 ml/min; Est GFR (African American) 48.7; Globulin 4.8 gm/dl (2.5-4.0); Total Protein 7.8 gm/dl (6.4-8.2); Troponin I 0.068 ng/ml (0-0.045)
[2019-08-29 12:21] LABS: Influenza A virus by PCR Neg for Influ A (Neg); Influenza B virus by PCR Neg for Influ B (Neg)
[2019-08-29 12:21] LABS: Beta-Hydroxybutyrate 1.18 mg/dl (0.2-2.81)
[2019-08-29 12:27] LABS: Appearance Urine Clear (Clear); Bacteria Urine Automated Negative (Negative); Bilirubin Urine Negative (Negative); Blood Urine 2+ (Negative); Color Urine Yellow; Glucose Urine UA 3+ (Negative); Ketones Urine Negative (Negative); Leukocyte Esterase Urine Negative (Negative); Nitrite Urine Negative (Negative); Protein Urine 3+ (Negative); RBC Urine Automated 0-4 /hpf (0-4); Specific Gravity Urine 1.034 (1.000-1.030); Urobilinogen Urine Negative (Negative)
[2019-08-29 12:36] LABS: D Dimer 880 ug/L FEU (0-500)
[2019-08-29] MEDS ORDERED: SODIUM CHLORIDE 0.9% 1000ML 2,000 ML IV ONE (12:41)
[2019-08-29] MEDS ORDERED: OPTIRAY 320 125ml IV PRN (12:49)
[2019-08-29] MEDS ORDERED: LEVOFLOXACIN/D5W 750 MG/150 ML BAG IV SCH ×2 (13:00→15:45)
--- NOTE | 2019-08-29 13:05 | CT Scan Report ---
CT angio chest PE protocol CT DOSE: 742.55 mGy.cm HISTORY: 69 years-old Male with hypoxic and PE. Acute shortness of breath TECHNIQUE: Multiple CTA images of the chest were obtained after the intravenous administration of 118 ml Optiray 320. Coronal and sagittal MIPS were obtained from the axial data set and were submitted for review. All measurements were obtained according to NASCET criteria. A dose lowering technique w as utilized adhering to the principles of ALARA. COMPARISON: Chest radiograph of same day. FINDINGS: CTA: Mild cardiomegaly with prior median sternotomy and CABG. Extensive [place] coronary arterial calcifica tions are noted. No thoracic aortic aneurysm or dissection identified. Patency of the imaged great ve ssels. Pulmonary arterial tree is opacified to the level of the segmental branches. The distal segmen dereje branches and the subsegmental branches are not well evaluated secondary to contrast bolus timing and respiratory motion. No filling defects identified to suggest pulmonary thromboembolic disease. CT CHEST: Unremarkable thyroid. Nonspecific mildly prominent right hilar and subcarinal lymph nodes. No adenopa thy by CT size criteria. There is no pneumothorax or pleural effusion. Evaluation of the lung cherry is limited secondary to respiratory motion. Bilateral bronchial wall thickening with multifocal bibas ilar mucous plugging. Patchy bilateral reticular nodular and bronchovascular distribution of patchy a lveolar opacities with tree-in-bud nodules are noted within all segments bilaterally within a bibasil ar predominant distribution. Scattered calcified granulomata are noted. No overt pulmonary edema. Add itional micronodules are seen scattered about the fissures. No acute process of the imaged upper abdomen. Soft tissues are unremarkable. Degenerative changes of the shoulders and spine. No acute fracture. IMPRESSION: 1. No evidence of pulmonary thromboembolic disease. 2. Extensive bibasilar mucous plugging with bronchial wall thickening. 3. Multisegmental distribution of patchy alveolar and groundglass opacities with tree-in-bud, centril obular and bushra fissural nodules suggestive of a nonspecific infectious or inflammatory pneumonitis. 4. Prior granulomatous disease. 5. No adenopathy. 6. Cardiomegaly with prior median sternotomy and CABG. The above report was generated using voice recognition software. It may contain grammatical, syntax o r spelling errors. Electronically signed by: Paul Fleming M.D. 08/29/2019 1:03 PM
[2019-08-29] MEDS ORDERED: cefTRIAXone SODIUM 1,000 MG/50 ML BAG IV STA (13:10)
--- NOTE | 2019-08-29 13:29 | History & Physical Report ---
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 [employer]--possibly some level of underlying pulm disease related to occupation + ddimer with CTA neg for PE CTA does suggest possible PNA with noted mucous plugging Levaquin started in the ED, will continue Nebs with mucomyst Given steroids in the ED, will hold for now to avoid further hyperglycemia but may need t/c use if not improving CBC WNL Flu neg No hx of prior O2 use May benefit from formal PFTs once is has recovered from this episode given prior occupation (2) Elevated troponin: No prior results in system Possible demand ischemia in the setting of CAD Trop 0.068, serials pending EKG WNL Monitor on tele for now (3) Elevated serum creatinine: Appears to be chronic 1.6 on admission Last was 1.7 on 04/14/19 Monitor (4) 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 Yang and [facility] in the past Denies current or even recent Bactrim use Monitor (5) Diabetes mellitus: Holding metformin given contrast Lantus + SSI PRN A1c pending Hyperglycemia noted in the ED, given insulin, monitor Just finished course of outpt steroids BHA WNL (6) Hyperlipidemia: continue home meds (7) HTN (hypertension): continue home meds (8) CAD (coronary artery disease): s/p stents, CABG Aspirin 81mg, plavix (9) DVT prophylaxis: Heparin for DVT proph History of Present Illness Primary Care Provider: Pelon Renteria 69 y/o M c/o SOB and cough. Pt started feeling unwell around the end of July with a "chest cold". He was using OTC meds without much helps. He was seen in the walk-in clinic on Saturday and started on a zpack, steroid taper, and cough syrup with codeine. He initially felt somewhat improved with this, but then started to feel a return of SOB and cough. He finished these medications yesterday. When his breathing continued to worsen, he came to the ED. He has no other issues. He feels like he is coughing a lot, but cannot bring anything up. Pt denies fever, chest pain, abd pain, n/v/c/d, LE pain or swelling. Pt was started on O2 and given levaquin and steroids in the ED. He does feel somewhat improved. Per ED physician, pt was 87% on RA prior to interventions. Allergies Allergy/AdvReac Type Severity Reaction Status Date / Time Penicillins Allergy Severe SEVERE RASH Verified 04/16/19 08:24 Home Medications Home Medications Medication Instructions Recorded Confirmed Type Lactobacillus acidoph-L.bulgaricus 4 tab PO TID 07/14/18 08/29/19 History 1 million cell tablet aspirin 81 mg tablet,delayed 81 mg PO DAILY 07/14/18 08/29/19 History release carvedilol 6.25 mg tablet 6.25 mg PO BID 07/14/18 08/29/19 History cholecalciferol (vitamin D3) 400 400 units PO DAILY 07/14/18 08/29/19 History unit capsule cinnamon bark 500 mg capsule 500 mg PO DAILY cap 07/14/18 08/29/19 History clopidogrel 75 mg tablet 75 mg PO DAILY 07/14/18 08/29/19 History insulin glargine (U- 100) 100 27 units SQ DAILY ml 07/14/18 08/29/19 History unit/mL subcutaneous solution lisinopril 5 mg PO DAILY 04/15/19 08/29/19 History metformin 1,000 mg PO BID 04/15/19 08/29/19 History simvastatin 80 mg PO HS 04/15/19 08/29/19 History albuterol sulfate 2 puff INHALATION UD PRN 08/29/19 08/29/19 History Past Med/Surg History Medical History CAD (coronary artery disease) (Chronic) Diabetes 1.5, managed as type 1 (Chronic) Dyslipidemia (Chronic) HTN (hypertension) (Chronic) Surgical History S/P CABG (coronary artery bypass graft) (Chronic) Stented coronary artery (Chronic) H/O amputation of lesser toe (Resolved) S/P CABG (coronary artery bypass graft) (Resolved) Family History Father Myocardial infarction Other No pertinent family history Social History Communication Ability: Effective Visual Impairment: Limited Hearing Ability: Normal Bagel Maker Required: Yes Beliefs That Will Affect Care: None marital status: single Current Living Situation: Alone 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 Feels Safe at Home: Yes Smoking Status: Never smoker Second Hand Exposure: No ; Hx Alcohol Use: Yes Alcohol type: beer Alcohol Intake Frequency Comment: 1-2 times a week Hx Substance Use: No Review of Systems Review of Systems: Pertinent positives and negatives reviewed in HPI--all others negative Physical Exam Constitutional: WD/WN, vitals as above Eyes: normal visual cherry by confrontation and + anicteric sclerae Neck: normal visual inspection and trachea midline Respiratory: normal respiratory effort; no respiratory distress Au scultation: + diminished lung sounds and + crackles; no wheezes upper airway congestion Cardiovascular: Rate/Rhythm: regular rate and regular rhythm Gastrointestinal (Abdomen): Inspection/Auscultation: + abdomen distended Percussion/Palpation: abdomen nontender Musculoskeletal: Head/Neck/Chest: normocephalic and head atraumatic negative for edema, peripheral pulses intact Skin: no rashes, warm and dry Neurologic: awake; not confused Speech / Cognition: normal speech Psychiatric: A+Ox3, euthymic affect Results & Data Vital Signs (Past 12 Hours) Vital Signs Temp Pulse Pulse Resp BP Pulse Ox 08/29/19 12:30 86 24 161/97 H 96 08/29/19 12:00 85 24 160/96 H 99 08/29/19 11:41 80 27 H 100 08/29/19 11:34 85 85 23 153/93 H 100 08/29/19 11:19 97 08/29/19 11:07 36.5 C 94 H 24 113/72 88 L Diagnostic Findings CXR: pulm vasc congestion CTA: 1. No evidence of pulmonary thromboembolic disease. 2. Extensive bibasilar mucous plugging with bronchial wall thickening. 3. Multisegmental distribution of patchy alveolar and groundglass opacities with tree-in-bud, centrilobular and bushra fissural nodules suggestive of a nonspecific infectious or inflammatory pneumonitis. 4. Prior granulomatous disease. 5. No adenopathy. 6. Cardiomegaly with prior median sternotomy and CABG. ECG Rhythm: normal sinus Code Status & VTE Plan Code Status Full code PG Care Time/CCT Total # of Minutes Spent Total Time Spent with Patient: Total time spent is greater than 50% in coordination of care (as documented) at patient's floor/unit and/or counseling patient:
--- NOTE | 2019-08-29 14:32 | Emergency Department Note ---
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 He is accompanied by his brother who reports the patient has had dyspnea for the past week. The patient states he has never had anything like this before. He states he was at his PCP's office when they referred him to the ED. He notes he has a slight cough in the morning but denies any sore throat, chest pain, nausea, vomiting, diarrhea, fevers. Home Medications Home Medications Medication Instructions Recorded Confirmed Type Lactobacillus acidoph-L.bulgaricus 4 tab PO TID 07/14/18 08/29/19 History 1 million cell tablet aspirin 81 mg tablet,delayed 81 mg PO DAILY 07/14/18 08/29/19 History release carvedilol 6.25 mg tablet 6.25 mg PO BID 07/14/18 08/29/19 History cholecalciferol (vitamin D3) 400 400 units PO DAILY 07/14/18 08/29/19 History unit capsule cinnamon bark 500 mg capsule 500 mg PO DAILY cap 07/14/18 08/29/19 History clopidogrel 75 mg tablet 75 mg PO DAILY 07/14/18 08/29/19 History insulin glargine (U- 100) 100 27 units SQ DAILY ml 07/14/18 08/29/19 History unit/mL subcutaneous solution lisinopril 5 mg PO DAILY 04/15/19 08/29/19 History metformin 1,000 mg PO BID 04/15/19 08/29/19 History simvastatin 80 mg PO HS 04/15/19 08/29/19 History albuterol sulfate 2 puff INHALATION UD PRN 08/29/19 08/29/19 History Allergies Allergy/AdvReac Type Severity Reaction Status Date / Time Penicillins Allergy Severe SEVERE RASH Verified 04/16/19 08:24 Past Med/Surg History Medical History CAD (coronary artery disease) (Chronic) Diabetes 1.5, managed as type 1 (Chronic) Dyslipidemia (Chronic) HTN (hypertension) (Chronic) Surgical History S/P CABG (coronary artery bypass graft) (Chronic) Stented coronary artery (Chronic) H/O amputation of lesser toe (Resolved) S/P CABG (coronary artery bypass graft) (Resolved) Family History Father Myocardial infarction Other No pertinent family history Social History Communication Ability: Effective Visual Impairment: Limited Hearing Ability: Normal Watch Guard Gate Required: Yes Beliefs That Will Affect Care: None marital status: single Current Living Situation: Alone 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 and A total of 10 systems reviewed and were otherwise negative Physical Exam Vital Signs Vital Signs - 24 hr 08/29/19 11:07 08/29/19 11:19 08/29/19 11:34 Temperature 36.5 C Temperature Source Oral Sepsis Recent Fever Within 48 Hours No Sepsis New/Unexplained Change in Mental Status No Sepsis Action Taken by Nursing No Action Required Pulse Rate 94 H 85 Pulse Rate [Right Finger] 85 Pulse Rate from SpO2 Sensor 85 Respiratory Rate 24 23 Respiratory Effort / Characteristics Non-Labored Spontaneous Spontaneous Labored Spontaneous Respiratory Depth Normal Normal Respiratory Pattern Regular Regular Blood Pressure 113/72 153/93 H Blood Pressure Mean 85 113 Blood Pressure Position Sitting Pulse Oximetry 88 L 97 100 Oxygen Delivery Method Room Air Nasal Cannula Nebulizer Oxygen Flow Rate 2 2 08/29/19 11:41 08/29/19 12:00 08/29/19 12:30 Temperature Temperature Source Sepsis Recent Fever Within 48 Hours Sepsis New/Unexplained Change in Mental Status Sepsis Action Taken by Nursing Pulse Rate 80 85 86 Pulse Rate [Right Finger] Pulse Rate from SpO2 Sensor 81 85 Respiratory Rate 27 H 24 24 Respiratory Effort / Characteristics Respiratory Depth Respiratory Pattern Blood Pressure 160/96 H 161/97 H Blood Pressure Mean 117 118 Blood Pressure Position Pulse Oximetry 100 99 96 Oxygen Delivery Method Nebulizer Nasal Cannula Nasal Cannula Oxygen Flow Rate 2 2.5 08/29/19 13:00 08/29/19 13:30 08/29/19 14:00 Temperature Temperature Source Sepsis Recent Fever Within 48 Hours Sepsis New/Unexplained Change in Mental Status Sepsis Action Taken by Nursing Pulse Rate 84 85 Pulse Rate [Right Finger] Pulse Rate from SpO2 Sensor 84 85 82 Respiratory Rate 22 15 22 Respiratory Effort / Characteristics Respiratory Depth Respiratory Pattern Blood Pressure 143/101 H 118/86 133/80 Blood Pressure Mean 115 96 97 Blood Pressure Position Pulse Oximetry 94 95 96 Oxygen Delivery Method Nasal Cannula Nasal Cannula Nasal Cannula Oxygen Flow Rate 2.5 2.5 2.5 GENERAL: Sitting up in bed. Chronically ill appearing. Dyspneic in conversation EYE EXAM: normal conjunctiva, PERRL and EOM's grossly intact OROPHARYNX: no exudate, no erythema, lips, buccal mucosa, and tongue normal and mucous membranes are moist NECK: supple, no nuchal rigidity, no adenopathy, non-tender LUNGS: Wheezing bilaterally. HEART: no murmurs, S1 normal and S2 normal ABDOMEN: abdomen soft, non-tender, normo-active bowel sounds, no masses, no rebound or guarding. BACK: Back is symmetrical on inspection and there is no deformity, no midline tenderness, no CVA tenderness. SKIN: no rashes and no bruising UPPER EXTREMITIES: upper extremities are grossly normal. LOWER EXTREMITIES: No pitting edema. Calves equal bilateral NEURO EXAM: Normal sensorium, cranial nerves II-XII grossly intact, normal speech, no gross weakness of arms, no gross weakness of legs. Course ED COURSE: Vital signs were reviewed and showed normotensive The patients medical record was reviewed The above diagnostic studies were performed and reviewed. ED treatments and interventions as stated above. 1117: The patient was evaluated in room C9. A complete history and physical examination was performed. 1300: Discussed the patient's case with Dr. Nancy Martines, [facility] Hospitalist. The patient will be evaluated for further management. 1310: Upon reevaluation, the patient is feeling slightly better, but he states the neb did not help. I discussed my findings with the patient and he understands and agrees with the treatment plan. Based on the patients age, coexisting illnesses, exam and lab findings the decision to treat as an inpatient was made. The patient remained stable while under my care. The patient will be evaluated for further management. Administered Medications Sodium Chloride (Nss 1000ml) 2,000 mls @ 999 mls/hr IV .Q2H1M ONE Stop: 08/29/19 14:41 Last Admin: 08/29/19 12:55 Dose: 999 mls/hr Documented by: [id number] Levofloxacin/Dextrose (Levaquin/D5w) 750 mg in 150 mls @ 100 mls/hr IV Q24H SAMANTA Stop: 08/31/19 12:59 Last Admin: 08/29/19 13:08 Dose: 100 mls/hr Documented by: [id number] Ioversol (Optiray 320 125ml) 118 ml IV ONCE PRN PRN Reason: Interaction Checking Stop: 09/02/19 12:48 Last Admin: 08/29/19 12:50 Dose: 118 ml Documented by: [id number] Discontinued Medications Albuterol (Duoneb) 9 ml INH NOW STA Stop: 08/29/19 11:18 Last Admin: 08/29/19 11:33 Dose: 9 ml Documented by: [id number] Ceftriaxone Sodium (Rocephin) 1,000 mg in 50 mls @ 100 mls/hr IV NOW STA Stop: 08/29/19 13:39 Last Infusion: 08/29/19 13:57 Dose: 0 mls/hr Documented by: [id number] Admin: 08/29/19 13:23 Dose: 100 mls/hr Documented by: [id number] Methylprednisolone (Solumedrol) 40 mg IV NOW STA Stop: 08/29/19 12:57 Last Admin: 08/29/19 13:07 Dose: 40 mg Documented by: [id number] Medical Decision Making Differential Diagnosis Differential diagnoses includes but is not limited to pneumonia, bronchitis, COPD/Asthma exacerbation, pneumothorax, pulmonary embolism, congestive heart constance lure, acute coronary syndrome Medical Records Attestation: I reviewed the patient's medical records. Home Medications Current Medication List: was personally reviewed by me Laboratory Data Attestation: I reviewed the patient's lab results. Result diagrams: 08/29/19 11:29 08/29/19 11:29 Lab Results 08/29/19 08/29/19 08/29/19 Range/Units 11:29 11:29 11:29 WBC 10.35 (4.8-10.8) K/uL RBC 4.33 L (4.7-6.1) M/uL Hgb 14.1 (14.0-18.0) g/dL Hct 42.7 (42-52) % MCV 98.6 (80-100) fL MCH 32.6 (25-34) pg MCHC 33.0 (32-36) g/dL RDW Std Deviation 46.7 H (36.4-46.3) fL RDW Coeff of Sarah 12.9 (11.5-14.5) % Plt Count 248 (130-400) K/uL MPV 9.7 (7.4-10.4) fL Immature Gran % (Auto) 0.9 % Neut % (Auto) 83.0 % Lymph % (Auto) 4.5 % Green % (Auto) 11.5 % Eos % (Auto) 0.0 % Baso % (Auto) 0.1 % Immature Gran # (Auto) 0.09 H (0.00-0.02) K/uL Neut # (Auto) 8.59 H (1.4-6.5) K/uL Lymph # (Auto) 0.47 L (1.2-3.4) K/uL Green # (Auto) 1.19 H (0.11-0.59) K/uL Eos # (Auto) 0.00 (0-0.5) K/uL Baso # (Auto) 0.01 (0-0.2) K/uL Absolute Nucleated RBC 0.02 H (0-0) K/uL Nucleated RBC % (auto) 0.2 % PT 12.2 H (9.0-12.0) Seconds INR 1.2 H (0.9-1.1) APTT 28.3 (21.0-31.0) Seconds PTT Ratio 1.0 D-Dimer (0-500) ug/L FEU Sodium 134 L (136-145) mmol/L Potassium 5.0 (3.5-5.1) mmol/L Chloride 98 (98-107) mmol/L Carbon Dioxide 29 (21-32) mmol/L Anion Gap 7.0 (3-11) BUN 39 H (7-18) mg/dl Creatinine 1.66 H (0.6-1.4) mg/dl Est Cr Clr Drug Dosing 49.7 ml/min Est GFR ( Amer) 48.7 Est GFR (Non-Af Amer) 42.0 BUN/Creatinine Ratio 23.8 H (10-20) Glucose 475 H* (70-99) mg/dl POC Glucose (70-99) Calcium 8.4 L (8.5-10.1) mg/dl Total Bilirubin 0.6 (0.2-1) mg/dl AST 25 (15-37) U/L ALT 57 (12-78) U/L Alkaline Phosphatase 90 (45-117) U/L Troponin I 0.068 H* (0-0.045) ng/ml Total Protein 7.8 (6.4-8.2) gm/dl Albumin 3.0 L (3.4-5.0) gm/dl Globulin 4.8 H (2.5-4.0) gm/dl Albumin/Globulin Ratio 0.6 L (0.9-2) Beta-Hydroxybutyric Acd 1.18 (0.2-2.81) mg/dl Urine Color Urine Appearance (Clear) Urine pH (4.5-7.5) Ur Specific [place] (1.000-1.030) Urine Protein (Negative) Urine Glucose (UA) (Negative) Urine Ketones (Negative) Urine Blood (Negative) Urine Nitrite (Negative) Urine Bilirubin (Negative) Urine Urobilinogen (Negative) Ur Leukocyte Esterase (Negative) Urine WBC (Auto) (0-5) /hpf Urine RBC (Auto) (0-4) /hpf U Hyaline Cast (Auto) (0-5) /lpf U Epithel Cells (Auto) (0-5) /lpf Urine Bacteria (Auto) (Negative) Influenza Type A (PCR) (Neg) Influenza Type B (PCR) (Neg) 08/29/19 08/29/19 08/29/19 Range/Units 11:29 11:30 12:10 WBC (4.8-10.8) K/uL RBC (4.7-6.1) M/uL Hgb (14.0-18.0) g/dL Hct (42-52) % MCV (80-100) fL MCH (25-34) pg MCHC (32-36) g/dL RDW Std Deviation (36.4-46.3) fL RDW Coeff of Sarah (11.5-14.5) % Plt Count (130-400) K/uL MPV (7.4-10.4) fL Immature Gran % (Auto) % Neut % (Auto) % Lymph % (Auto) % Green % (Auto) % Eos % (Auto) % Baso % (Auto) % Immature Gran # (Auto) (0.00-0.02) K/uL Neut # (Auto) (1.4-6.5) K/uL Lymph # (Auto) (1.2-3.4) K/uL Green # (Auto) (0.11-0.59) K/uL Eos # (Auto) (0-0.5) K/uL Baso # (Auto) (0-0.2) K/uL Absolute Nucleated RBC (0-0) K/uL Nucleated RBC % (auto) % PT (9.0-12.0) Seconds INR (0.9-1.1) APTT (21.0-31.0) Seconds PTT Ratio D-Dimer 880 H* (0-500) ug/L FEU Sodium (136-145) mmol/L Potassium (3.5-5.1) mmol/L Chloride (98-107) mmol/L Carbon Dioxide (21-32) mmol/L Anion Gap (3-11) BUN (7-18) mg/dl Creatinine (0.6-1.4) mg/dl Est Cr Clr Drug Dosing ml/min Est GFR ( Amer) Est GFR (Non-Af Amer) BUN/Creatinine Ratio (10-20) Glucose (70-99) mg/dl POC Glucose (70-99) Calcium (8.5-10.1) mg/dl Total Bilirubin (0.2-1) mg/dl AST (15-37) U/L ALT (12-78) U/L Alkaline Phosphatase (45-117) U/L Troponin I (0-0.045) ng/ml Total Protein (6.4-8.2) gm/dl Albumin (3.4-5.0) gm/dl Globulin (2.5-4.0) gm/dl Albumin/Globulin Ratio (0.9-2) Beta-Hydroxybutyric Acd (0.2-2.81) mg/dl Urine Color Yellow Urine Appearance Clear (Clear) Urine pH 5.0 (4.5-7.5) Ur Specific [place] 1.034 H (1.000-1.030) Urine Protein 3+ H (Negative) Urine Glucose (UA) 3+ H (Negative) Urine Ketones Negative (Negative) Urine Blood 2+ H (Negative) Urine Nitrite Negative (Negative) Urine Bilirubin Negative (Negative) Urine Urobilinogen Negative (Negative) Ur Leukocyte Esterase Negative (Negative) Urine WBC (Auto) 1-5 (0-5) /hpf Urine RBC (Auto) 0-4 (0-4) /hpf U Hyaline Cast (Auto) 1-5 (0-5) /lpf U Epithel Cells (Auto) 5-10 H (0-5) /lpf Urine Bacteria (Auto) Negative (Negative) Influenza Type A (PCR) Neg for Influ A (Neg) Influenza Type B (PCR) Neg for Influ B (Neg) 08/29/19 Range/Units 12:52 WBC (4.8-10.8) K/uL RBC (4.7-6.1) M/uL Hgb (14.0-18.0) g/dL Hct (42-52) % MCV (80-100) fL MCH (25-34) pg MCHC (32-36) g/dL RDW Std Deviation (36.4-46.3) fL RDW Coeff of Sarah (11.5-14.5) % Plt Count (130-400) K/uL MPV (7.4-10.4) fL Immature Gran % (Auto) % Neut % (Auto) % Lymph % (Auto) % Green % (Auto) % Eos % (Auto) % Baso % (Auto) % Immature Gran # (Auto) (0.00-0.02) K/uL Neut # (Auto) (1.4-6.5) K/uL Lymph # (Auto) (1.2-3.4) K/uL Green # (Auto) (0.11-0.59) K/uL Eos # (Auto) (0-0.5) K/uL Baso # (Auto) (0-0.2) K/uL Absolute Nucleated RBC (0-0) K/uL Nucleated RBC % (auto) % PT (9.0-12.0) Seconds INR (0.9-1.1) APTT (21.0-31.0) Seconds PTT Ratio D-Dimer (0-500) ug/L FEU Sodium (136-145) mmol/L Potassium (3.5-5.1) mmol/L Chloride (98-107) mmol/L Carbon Dioxide (21-32) mmol/L Anion Gap (3-11) BUN (7-18) mg/dl Creatinine (0.6-1.4) mg/dl Est Cr Clr Drug Dosing ml/min Est GFR ( Amer) Est GFR (Non-Af Amer) BUN/Creatinine Ratio (10-20) Glucose (70-99) mg/dl POC Glucose 388 H* (70-99) Calcium (8.5-10.1) mg/dl Total Bilirubin (0.2-1) mg/dl AST (15-37) U/L ALT (12-78) U/L Alkaline Phosphatase (45-117) U/L Troponin I (0-0.045) ng/ml Total Protein (6.4-8.2) gm/dl Albumin (3.4-5.0) gm/dl Globulin (2.5-4.0) gm/dl Albumin/Globulin Ratio (0.9-2) Beta-Hydroxybutyric Acd (0.2-2.81) mg/dl Urine Color Urine Appearance (Clear) Urine pH (4.5-7.5) Ur Specific [place] (1.000-1.030) Urine Protein (Negative) Urine Glucose (UA) (Negative) Urine Ketones (Negative) Urine Blood (Negative) Urine Nitrite (Negative) Urine Bilirubin (Negative) Urine Urobilinogen (Negative) Ur Leukocyte Esterase (Negative) Urine WBC (Auto) (0-5) /hpf Urine RBC (Auto) (0-4) /hpf U Hyaline Cast (Auto) (0-5) /lpf U Epithel Cells (Auto) (0-5) /lpf Urine Bacteria (Auto) (Negative) Influenza Type A (PCR) (Neg) Influenza Type B (PCR) (Neg) Imaging Data Radiologist's Impression: Radiology results as stated below per my review and the radiologist's interpretation: XR chest 1V portable HISTORY: 69 years-old Male Dyspnea acute shortness of breath COMPARISON: Chest radiograph 05/28/2018 TECHNIQUE: Portable AP view of the chest FINDINGS: Cardiac silhouette is enlarged, unchanged. Prior median sternotomy. There is mild pulmonary vascular congestion with chronic midlung and bibasilar inte rstitial coarsening. No pneumothorax, large pleural effusion or lobar airspace consolidation. Degenerative changes of the shoulders and spine. IMPRESSION: 1. Cardiomegaly with pulmonary vascular congestion. 2. Mild chronic interstitial coarsening. The above report was generated using voice recognition software. It may contain grammatical, syntax or spelling errors. Electronically signed by: Paul Fleming M.D. 08/29/2019 11:[address] angio chest PE protocol CT DOSE: 742.55 mGy.cm HISTORY: 69 years-old Male with hypoxic and PE. Acute shortness of breath TECHNIQUE: Multiple CTA images of the chest were obtained after the intravenous administration of 118 ml Optiray 320. Coronal and sagittal MIPS were obtained from the axial data set and were submitted for review. All measurements were obtained according to NASCET criteria. A dose lowering technique was utilized adhering to the principles of ALARA. COMPARISON: Chest radiograph of same day. FINDINGS: CTA: Mild cardiomegaly with prior median sternotomy and CABG. Extensive kashia coronary arterial calcifications are noted. No thoracic aortic aneurysm or dissection identified. Patency of the imaged great vessels. Pulmonary arterial tree is opacified to the level of the segmental branches. The distal segmental branches and the subsegmental branches are not well evaluated secondary to contrast bolus timing and respiratory motion. No filling defects identified to suggest pulmonary thromboembolic disease. CT CHEST: Unremarkable thyroid. Nonspecific mildly prominent right hilar and subcarinal lymph nodes. No adenopathy by CT size criteria. There is no pneumothorax or pleural effusion. Evaluation of the lung cherry is limited secondary to respiratory motion. Bilateral bronchial wall thickening with multifocal bibasilar mucous plugging. Patchy bilateral reticular nodular and bronchovascular distribution of patchy alveolar opacities with tree-in-bud nodules are noted within all segments bilaterally within a bibasilar predominant distribution. Scattered calcified granulomata are noted. No overt pulmonary edema. Additional micronodules are seen scattered about the fissures. No acute process of the imaged upper abdomen. Soft tissues are unremarkable. Degenerative changes of the shoulders and spine. No acute fracture. IMPRESSION: 1. No evidence of pulmonary thromboembolic disease. 2. Extensive bibasilar mucous plugging with bronchial wall thickening. 3. Multisegmental distribution of patchy alveolar and groundglass opacities with tree-in-bud, centrilobular and bushra fissural nodules suggestive of a nonspecific infectious or inflammatory pneumonitis. 4. Prior granulomatous disease. 5. No adenopathy. 6. Cardiomegaly with prior median sternotomy and CABG. The above report was generated using voice recognition software. It may contain grammatical, syntax or spelling errors. Electronically signed by: Paul Fleming M.D. 08/29/2019 1:03 PM ECG Data Attestation: I personally reviewed and interpreted this ECG as follows: Indication: SOB/dyspnea Rate (beats per minute): 85 Rhythm: sinus rhythm Findings: + other (normal axis), + T-wave inversion (Septal) and + prolonged QT; no PVC Blood Pressure Blood Pressure Findings: Normal blood pressure Blood Pressure Disposition: did not require urgent referral MDM Narrative Patient is a 69-year-old male who presents the ER with a past medical history of CAD, hypertension, hyperlipidemia for shortness of breath referred in by PCP. Upon presentation is found to be hypoxic at 87% on room air. He was placed on 2 L nasal cannula with a pulse ox that went up to 95%. He did have diffuse wheezing. Patient was given neb treatments with no significant improvement. IV was established blood work was obtained and showed no significant leukocytosis or anemia. INR was unremarkable. D-dimer was elevated. BMP with a creatinine 1.66. Glucose was elevated at 475. Patient was given IV fluids. Trend down to 388. Troponin was elevated at 0.068. Beta hydroxybutyric was negative. Not consistent with DKA. UA was contaminated with multiple epithelial cells. CT PE was performed and showed pneumonitis. Patient was given IV Rocephin, IV Levaquin, and IV steroids. He was updated bedside. Discussed with the hospitalist. Do favor the elevated troponins likely secondary to demand ischemia. Patient denies any chest pain. EKG showed nonspecific ST wave changes. Impression & Plan Hypoxia, Pneumonitis, Elevated troponin Critical Care Time Critical Care Time: Yes Total Critical Care Time: 32 I have personally spent 32 minutes of critical care time in the direct managemen t of this patient. This includes bedside care, interpretation of diagnostic studies, and testing, discussion with consultants, patient, and family members, and other required patient management activities. This 32 minutes is in excess of all separately billable procedures. Discharge Plan Visit Data Chief Complaint: Shortness of Breath/Dyspnea Stated Complaint: FLUID IN LUNGS - CANT BREATHE ED Provider: Dung Abad Discharge Problem: Hypoxia, Pneumonitis, Elevated troponin Patient Disposition: Being Evaluated by Hospitalist Forms Stand Alone Forms: My [facility] Prescriptions Prescriptions: No Action aspirin 81 mg tablet,delayed release (DR/EC) 81 mg PO DAILY RF: 0 carvedilol 6.25 mg tablet 6.25 mg PO BID RF: 0 cholecalciferol (vitamin D3) 400 unit capsule 400 units PO DAILY RF: 0 cinnamon bark [Cinnamon] 500 mg capsule 500 mg PO DAILY RF: 0 clopidogrel [Plavix] 75 mg tablet 75 mg PO DAILY RF: 0 insulin glargine [Lantus U-100 Insulin] 100 unit/mL solution 27 units SQ DAILY RF: 0 Lactobacillus acidoph-L.bulgar [Floranex] 1 million cell tablet 4 tab PO TID RF: 0 simvastatin 80 mg Tablet 80 mg PO HS RF: 0 metformin 1,000 mg Tablet 1,000 mg PO BID RF: 0 lisinopril 5 mg Tablet 5 mg PO DAILY RF: 0 albuterol sulfate 90 mcg/actuation HFA aerosol inhaler 2 puff inhalation UD PRN (Reason: Wheezing) RF: 0 Referrals Referrals: Pelon Renteria [Primary Care Provider] - The scribe's documentation has been prepared under my direction and personally reviewed by me in its entirety. I confirm that the note above accurately reflects all work, treatment, procedures, and medical decision making performed by me.
[2019-08-29] MEDS ORDERED: ONDANSETRON INJ 2 MG/ML 2 ML VIAL IV PRN (15:45)
[2019-08-29] MEDS ORDERED: MAGNESIUM HYDROXIDE SUSP 30 ML UDC PO PRN (15:45)
[2019-08-29] MEDS ORDERED: CARBOHYDRATES FOR HYPOGLYCEMIA PO PRN (15:45)
[2019-08-29] MEDS ORDERED: GLUCOSE 40% GEL 15 GM TUBE PO PRN (15:45)
[2019-08-29] MEDS ORDERED: GLUCAGON FOR INJ 1 MG VIAL SQ PRN (15:45)
[2019-08-29] MEDS ORDERED: GLUCOSE 10 TABS/TUBE PO PRN (15:45)
[2019-08-29] MEDS ORDERED: ACETAMINOPHEN 325 MG TAB PO PRN (15:45)
[2019-08-29] MEDS ORDERED: DEXTROSE 50% 50 ML SYRINGE IV PRN (15:45)
[2019-08-29] MEDS ORDERED: ALBUTEROL HFA 8 GM INHALER INH PRN (15:45)
[2019-08-29] MEDS ORDERED: INSULIN ASPART 100 UNITS/ML 3 ML PEN SC STA (15:54)
[2019-08-29] MEDS: ALBUT/IPRATROP 3MG/0.5MG NEB 3 ML VIAL NEB SCH ×3 (17:33→23:16)
[2019-08-29] MEDS: LACTOBACILLUS ACIDOPHILUS (FLORANEX) TAB PO SCH ×2 (17:46→20:25)
[2019-08-29] MEDS: HEPARIN SOD 5,000 UNIT/0.5 ML VIAL SQ SCH ×2 (17:46→20:27)
[2019-08-29] MEDS: INSULIN ASPART 100 UNITS/ML 3 ML PEN SC SCH ×2 (17:47→20:29)
[2019-08-29] MEDS: ACETYLCYSTEINE 20% INHAL SOLN ***DISPENSED BY RESP. INH SCH (19:10)
[2019-08-29] MEDS: SIMVASTATIN 80 MG TAB PO SCH (20:26)
[2019-08-29] MEDS: carvediloL 6.25 MG TAB PO SCH (20:26)
[2019-08-30] MEDS: ALBUT/IPRATROP 3MG/0.5MG NEB 3 ML VIAL NEB SCH ×6 (03:01→23:48)
[2019-08-30] MEDS: HEPARIN SOD 5,000 UNIT/0.5 ML VIAL SQ SCH ×3 (05:38→21:15)
[2019-08-30 06:13] LABS: Basophils # (auto) 0.01 K/uL (0-0.2); Basophils % (auto) 0.1 %; Hematocrit (blood only) 40.6 % (42-52); Immature Granulocytes # (auto) 0.09 K/uL (0.00-0.02); Immature Granulocytes % (auto) 0.8 %; Lymphocytes # (auto) 0.78 K/uL (1.2-3.4); Lymphocytes % (auto) 7.2 %; Mean Corpuscular Hemoglobin 31.6 pg (25-34); Mean Corpuscular Volume 98.8 fL (80-100); Mean Platelet Volume 9.5 fL (7.4-10.4); Monocytes # (auto) 0.92 K/uL (0.11-0.59); Monocytes % (auto) 8.5 %; Neutrophils % (auto) 83.4 %; Platelet Count 257 K/uL (130-400); RDW Standard Deviation 46.9 fL (36.4-46.3); Red Blood Count 4.11 M/uL (4.7-6.1)
[2019-08-30 06:45] LABS: BUN Creatinine Ratio 36.2 (10-20); Calcium 8.6 mg/dl (8.5-10.1); Est GFR (African American) 57.3; Est GFR (Non-African American) 49.5; Potassium 4.8 mmol/L (3.5-5.1)
[2019-08-30] MEDS: ACETYLCYSTEINE 20% INHAL SOLN ***DISPENSED BY RESP. INH SCH ×2 (07:03→19:49)
[2019-08-30] MEDS: ASPIRIN 81 MG ECTAB PO SCH (08:24)
[2019-08-30] MEDS: LACTOBACILLUS ACIDOPHILUS (FLORANEX) TAB PO SCH ×3 (08:24→21:13)
[2019-08-30] MEDS: CHOLECALCIFEROL (VITAMIN D) 400 UNITS TABLET PO SCH (08:24)
[2019-08-30] MEDS: CLOPIDOGREL BISULFATE 75 MG TAB PO SCH (08:24)
[2019-08-30] MEDS: carvediloL 6.25 MG TAB PO SCH ×2 (08:24→21:13)
[2019-08-30] MEDS: INSULIN ASPART 100 UNITS/ML 3 ML PEN SC SCH ×4 (08:25→21:14)
[2019-08-30] MEDS: INSULIN GLARGINE SOLOSTAR 100 UNITS/ML 3 ML PEN SQ SCH (08:25)
[2019-08-30] MEDS ORDERED: NON-FORMULARY MEDICATION (Cinnamon Bark [Cinnamon] 500 MG) PO SCH (09:00)
[2019-08-30] MEDS ORDERED: lisinopriL 5 MG TAB PO SCH (09:00)
--- NOTE | 2019-08-30 12:04 | Hospitalist Progress Note ---
Date of Service August 30, 2019 Assessment & Plan (1) Acute respiratory failure with hypoxia: - Likely related to pneumonia vs. underlying lung disease. 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 - Influenza by PCR negative. - +D-dimer; CTA negative for PE but did show extensive bibasilar mucous plugging with bronchial wall thickening and tree-in-bud opacities with prior granuloma disease. - Received Levaquin in ER; start Ceftriaxone IV daily (completed Zpak as outpt, no indication for atypical coverage) - Mucomyst BID and Duonebs q4hr scheduled. - Flutter valve QID; consider vibration vest. - Will need inpatient pulmonary consult if no improvement; establish care with pulmonary as outpatient for PFTs. (2) PNA (pneumonia): - CT chest concerning for PNA. - Continue Ceftriaxone IV as noted above; completed Azithromycin as outpatient. - Mucomyst BID and Duonebs q4hr ATC. (3) Elevated troponin: - Trop peaked at 0.085 then trended down. - EKG was within normal limits. - Denies cardiac symptoms. (4) Elevated serum creatinine: - Baseline Cr 1.2 to 1.4; was 1.6 on admission, now improving. - No IV fluids indicated. - Renally dose all meds - can continue JOSIAH-I unless renal function is trending up. 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 - Has followed with wound care in the past. (6) Diabetes mellitus: - Holding home Metformin as inpt. - A1C is pending. - SSI and Lantus coverage. Consider pharmacy consult (recently completed outpt steroids, may have steroid induced hyperglycemia) (7) Hyperlipidemia: - Continue home statin and ASA as prescribed. (8) HTN (hypertension): - Continue home Coreg 6.25 mg BID, Lisinopril 5 mg daily as prescribed. (9) CAD (coronary artery disease): - S/p CABG and stent placement in 2009. - Continue Plavix, ASA, statin, Lisinopril, Coreg as prescribed. - Did have mildly elevated troponin, no other cardiac issues during this admission. (10) Peripheral vascular disease: - S/p stenting of left superficial femoral artery [place] [address] Barcenas. - Continue Plavix, statin, ASA as prescribed - plan to transition to Xarelto 6 months post procedure per last cardiology note. (11) DVT prophylaxis: - Heparin q8hr. Dispo: Med/surg with tele for treatment of acute hypoxia and PNA. Supervising Physician Co-Signing Physician Notes Chart reviewed, case discussed with Isabell Timmons PAC. Agree with decision making and plan. Care as above. Subjective Pt. has increased SOB, both at rest and with exertion. Has a non-productive cough with audible wheezing. Is on 2L via NC -- on room air at home. Will continue treatment for PNA, expect improvement over next 1-2 days. Review of Systems Review of Systems: All systems reviewed & are unremarkable except as noted in HPI & below Constitutional: no fever, no chills, no fatigue and no weakness Respiratory: + cough, + dyspnea, + dyspnea on exertion and + wheezing Cardiovascular: no chest pain, no palpitations and no edema Gastrointestinal: no abdominal pain, no nausea, no vomiting and no constipation Genitourinary: no difficulty urinating Musculoskeletal: no back pain and no joint pain Integumentary: no non-healing lesions Physical Exam Physical Exam: General: Resting comfortably HEENT: NC/AT; PERRLA with EOMI; [place] conjunctiva, MMM. No erythema of posterior pharynx Neck: Supple and nontender Cardiac: RRR Lungs: on 2L via NC; Abdomen: Bowel normoactive X 4; Nontender to palpation Extremities: Warm. No edema present Neuro: No focal weakness Skin: No rash Results & Data Vital Signs (Past 12 Hours) Vital Signs Temp Pulse Resp BP BP Pulse Ox 08/30/19 11:56 36.8 C 65 20 111/57 L 96 08/30/19 11:06 79 20 95 08/30/19 08:07 36.7 C 68 22 131/79 98 08/30/19 07:06 20 94 08/30/19 04:00 36.8 C 79 24 147/79 H 93 08/30/19 03:01 77 20 95 PG Care Time/CCT Total # of Minutes Spent Total Time Spent with Patient: Total time spent is greater than 50% in coordination of care (as documented) at patient's floor/unit and/or counseling patient:
[2019-08-30] MEDS: cefTRIAXone SODIUM 2,000 MG in DEXTROSE 5% 50 ML IV SCH (13:36)
[2019-08-30] MEDS: SIMVASTATIN 80 MG TAB PO SCH (21:14)
[2019-08-31] MEDS: ALBUT/IPRATROP 3MG/0.5MG NEB 3 ML VIAL NEB SCH ×6 (02:58→23:35)
[2019-08-31] MEDS: HEPARIN SOD 5,000 UNIT/0.5 ML VIAL SQ SCH ×3 (05:12→21:15)
[2019-08-31 06:08] LABS: Hematocrit (blood only) 40.8 % (42-52); Hemoglobin 13.2 g/dL (14.0-18.0); Mean Corpuscular Hemoglobin 31.9 pg (25-34); Mean Corpuscular Hgb Conc 32.4 g/dL (32-36); Mean Corpuscular Volume 98.6 fL (80-100); Mean Platelet Volume 9.4 fL (7.4-10.4); Platelet Count 297 K/uL (130-400); RDW Coefficient of Variation 12.9 % (11.5-14.5); RDW Standard Deviation 46.5 fL (36.4-46.3); Red Blood Count 4.14 M/uL (4.7-6.1); White Blood Count 13.35 K/uL (4.8-10.8)
[2019-08-31 06:45] LABS: BUN Creatinine Ratio 35.2 (10-20); Calcium 8.2 mg/dl (8.5-10.1); Creatinine Clr Calc Pharmacy 47.8 ml/min; Est GFR (Non-African American) 39.7; Potassium 4.8 mmol/L (3.5-5.1)
[2019-08-31 07:04] LABS: Estimated Average Glucose 226 mg/dl; Hemoglobin A1C 9.5 % (4.5-5.6)
[2019-08-31] MEDS: ACETYLCYSTEINE 20% INHAL SOLN ***DISPENSED BY RESP. INH SCH ×2 (07:09→19:17)
[2019-08-31] MEDS: INSULIN ASPART 100 UNITS/ML 3 ML PEN SC SCH ×4 (08:38→21:11)
[2019-08-31] MEDS: SODIUM CHLOR 0.45% + 20MEQ KCL 20 MEQ/1,000 ML BAG IV SCH ×3 (08:55→23:51)
[2019-08-31] MEDS: carvediloL 6.25 MG TAB PO SCH ×2 (08:56→21:06)
[2019-08-31] MEDS: ASPIRIN 81 MG ECTAB PO SCH (08:57)
[2019-08-31] MEDS: LACTOBACILLUS ACIDOPHILUS (FLORANEX) TAB PO SCH ×3 (08:59→21:07)
[2019-08-31] MEDS: INSULIN GLARGINE SOLOSTAR 100 UNITS/ML 3 ML PEN SQ SCH (09:01)
[2019-08-31] MEDS: CLOPIDOGREL BISULFATE 75 MG TAB PO SCH (09:03)
[2019-08-31] MEDS: CHOLECALCIFEROL (VITAMIN D) 400 UNITS TABLET PO SCH (09:04)
[2019-08-31] MEDS: cefTRIAXone SODIUM 2,000 MG in DEXTROSE 5% 50 ML IV SCH (14:18)
--- NOTE | 2019-08-31 19:34 | Hospitalist Progress Note ---
Date of Service August 31, 2019 Assessment & Plan (1) Acute respiratory failure with hypoxia: - Likely related to pneumonia vs. underlying lung disease. 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 - Influenza by PCR negative. - +D-dimer; CTA negative for PE but did show extensive bibasilar mucous plugging with bronchial wall thickening and tree-in-bud opacities with prior granuloma disease. - Received Levaquin in ER; start Ceftriaxone IV daily (completed Zpak as outpt, no indication for atypical coverage) -Continue ceftriaxone and supportive care. Continue to try to wean oxygen. (2) PNA (pneumonia): -Ceftriaxone as above, wean oxygen. (3) Elevated troponin: - Trop peaked at 0.085 then trended down. - EKG was within normal limits. - Denies cardiac symptoms. -Given his baseline coronary disease and significant physiologic and metabolic stress inflicted on one by a pneumonia, this almost certainly represents a mild degree of demand ischemia. (4) Elevated serum creatinine: -Appears to have baseline approximately stage III CKD. Creatinine was improving then worsening after IV fluids were stopped, but family notes that he is barely drinking. IV fluids resumed, encouraged oral intake. Follow-up basic metabolic panel. 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 (6) Diabetes mellitus: -Sugars reasonable, continue current care (7) Hyperlipidemia: - Continue home statin and ASA as prescribed. (8) HTN (hypertension): -Blood pressure is reasonable given the situation, continue current meds (9) CAD (coronary artery disease): - S/p CABG and stent placement in 2009. - Continue Plavix, ASA, statin, Lisinopril, Coreg as prescribed. - Did have mildly elevated troponin (see above mild demand ischemia), no other cardiac issues during this admission. (10) Peripheral vascular disease: - S/p stenting of left superficial femoral artery in [place] [address] Barcenas. - Continue Plavix, statin, ASA as prescribed - plan to transition to Xarelto 6 months post procedure per last cardiology note. (11) DVT prophylaxis: - Heparin q8hr. Dispo: Goal will be home hopefully in the next day or 2, with a goal of weaning oxygen as well as seeing improvement in creatinine. Subjective Generally feeling better. Does not drink much, family notes that is probably why his creatinine shahriar again, they note that they actually put him on glass water several hours ago and is only taken a few sips. They also note this is chronically the case. He notes generally his breathing feels better, he is still coughing, but overall is feeling better than before. Eating and drinking okay. Of note initially he and his brother got sick at the same time. Review of Systems Review of Systems: All systems reviewed & are unremarkable except as noted in HPI & below Physical Exam Physical Exam: In general he is awake and alert pleasant no distress. HEENT normal cephalic atraumatic mucous members moist. Lungs are coarse rhonchi throughout bilaterally but good air entry on inspiration no wheezing no rales good effort. Cardio is regular without rubs murmurs gallops. Extremities show no sinus clubbing or edema no calf tenderness. Skin shows no rashes no pallor or icterus. Results & Data Vital Signs (Past 12 Hours) Vital Signs Temp Pulse Pulse Pulse Resp BP BP 08/31/19 19:24 98.4 F 84 18 138/80 08/31/19 19:18 75 18 08/31/19 18:47 98.1 F 80 18 149/74 H 08/31/19 16:27 78 08/31/19 15:17 97.9 F 80 18 179/81 H 08/31/19 15:08 80 18 08/31/19 11:40 98.4 F 76 20 133/80 08/31/19 11:14 98.1 F 68 22 129/76 08/31/19 11:06 68 20 Pulse Ox 08/31/19 19:24 99 08/31/19 19:18 97 08/31/19 18:47 97 08/31/19 16:27 08/31/19 15:17 97 08/31/19 15:08 08/31/19 11:40 99 08/31/19 11:14 99 08/31/19 11:06 98 PG Care Time/CCT Total # of Minutes Spent Total Time Spent with Patient: Total time spent is greater than 50% in coordination of care (as documented) at patient's floor/unit and/or counseling patient:
[2019-08-31] MEDS: SIMVASTATIN 80 MG TAB PO SCH (21:10)
[2019-09-01] MEDS: ALBUT/IPRATROP 3MG/0.5MG NEB 3 ML VIAL NEB SCH ×3 (03:04→10:55)
[2019-09-01] MEDS: HEPARIN SOD 5,000 UNIT/0.5 ML VIAL SQ SCH ×2 (05:01→14:11)
[2019-09-01 06:44] LABS: Basophils # (auto) 0.01 K/uL (0-0.2); Basophils % (auto) 0.1 %; Eosinophils # (auto) 0.01 K/uL (0-0.5); Eosinophils % (auto) 0.1 %; Hematocrit (blood only) 41.1 % (42-52); Hemoglobin 13.5 g/dL (14.0-18.0); Immature Granulocytes # (auto) 0.18 K/uL (0.00-0.02); Immature Granulocytes % (auto) 1.3 %; Lymphocytes # (auto) 1.14 K/uL (1.2-3.4); Lymphocytes % (auto) 8.4 %; Mean Corpuscular Hemoglobin 32.1 pg (25-34); Mean Corpuscular Hgb Conc 32.8 g/dL (32-36); Mean Corpuscular Volume 97.9 fL (80-100); Mean Platelet Volume 9.4 fL (7.4-10.4); Monocytes # (auto) 1.39 K/uL (0.11-0.59); Monocytes % (auto) 10.2 %; Neutrophils # (auto) 10.84 K/uL (1.4-6.5); Neutrophils % (auto) 79.9 %; Platelet Count 246 K/uL (130-400); RDW Standard Deviation 46.2 fL (36.4-46.3); White Blood Count 13.57 K/uL (4.8-10.8)
[2019-09-01] MEDS: ACETYLCYSTEINE 20% INHAL SOLN ***DISPENSED BY RESP. INH SCH (07:20)
[2019-09-01 07:22] LABS: BUN Creatinine Ratio 31.3 (10-20); Calcium 8.4 mg/dl (8.5-10.1); Creatinine Clr Calc Pharmacy 67.3 ml/min; Est GFR (African American) 68.6; Est GFR (Non-African American) 59.2; Potassium 4.5 mmol/L (3.5-5.1)
[2019-09-01] MEDS: ASPIRIN 81 MG ECTAB PO SCH (08:02)
[2019-09-01] MEDS: LACTOBACILLUS ACIDOPHILUS (FLORANEX) TAB PO SCH ×2 (08:02→14:11)
[2019-09-01] MEDS: CLOPIDOGREL BISULFATE 75 MG TAB PO SCH (08:03)
[2019-09-01] MEDS: CHOLECALCIFEROL (VITAMIN D) 400 UNITS TABLET PO SCH (08:03)
[2019-09-01] MEDS: INSULIN GLARGINE SOLOSTAR 100 UNITS/ML 3 ML PEN SQ SCH (08:03)
[2019-09-01] MEDS: SODIUM CHLOR 0.45% + 20MEQ KCL 20 MEQ/1,000 ML BAG IV SCH (08:04)
[2019-09-01] MEDS: INSULIN ASPART 100 UNITS/ML 3 ML PEN SC SCH ×2 (08:05→12:02)
[2019-09-01] MEDS: carvediloL 6.25 MG TAB PO SCH (08:45)
[2019-09-01] MEDS ORDERED: cefTRIAXone SODIUM 2,000 MG in DEXTROSE 5% 50 ML IV STA (10:38)
--- NOTE | 2019-09-01 18:32 | Discharge Summary ---
Date of Service September 01, 2019 Admission HPI Per Admitting Provider 69 y/o M c/o SOB and cough. Pt started feeling unwell around the end of July with a "chest cold". He was using OTC meds without much helps. He was seen in the walk-in clinic on Saturday and started on a zpack, steroid taper, and cough syrup with codeine. He initially felt somewhat improved with this, but then started to feel a return of SOB and cough. He finished these medications yesterday. When his breathing continued to worsen, he came to the ED. He has no other issues. He feels like he is coughing a lot, but cannot bring anything up. Pt denies fever, chest pain, abd pain, n/v/c/d, LE pain or swelling. Pt was started on O2 and given levaquin and steroids in the ED. He does feel somewhat improved. Per ED physician, pt was 87% on RA prior to interventions. Principal Diagnosis Community-acquired pneumonia Discharge Exam General he is awake and alert pleasant no distress. HEENT normocephalic at raumatic mucous members moist. Breathing unlabored with scattered rhonchi but good air entry no accessory muscle use no wheezing good effort. Pulse ox dips no lower than a brief dasha of 91% on room air with ambulation, but mostly is 92-94. Skin shows no rashes no pallor or icterus. Discharge Data Allergies Allergy/AdvReac Type Severity Reaction Status Date / Time Penicillins Allergy Severe SEVERE RASH Verified 04/16/19 08:24 Consultations 08/29/19 13:10 ED Decision to Admit Stat Ordered Studies 08/29/19 12:15 CT angio chest PE protocol Stat Hospital Course (1) Acute respiratory failure with hypoxia: - Likely related to pneumonia vs. 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 - Influenza by PCR negative. - +D-dimer; CTA negative for PE but did show extensive bibasilar mucous plugging with bronchial wall thickening and tree-in-bud opacities with prior granuloma disease. - Received Levaquin in ER; start Ceftriaxone IV daily (completed Zpak as outpt, no indication for atypical coverage) -Showing good improvement nowstable for home. Will finish out a course of antibiotics with Omnicef -Oxygen has been weaned. Outpatient follow-up in regards to the possibility of chronic lung disease, but certainly this would be better evaluated when he is at a baseline state, not acutely infected. (2) PNA (pneumonia): -CeftriaxoneOmnicef as above. (3) Elevated troponin: - Trop peaked at 0.085 then trended down. - EKG was within normal limits. - Denies cardiac symptoms. -Given his baseline coronary disease and significant physiologic and metabolic stress inflicted on one by a pneumonia, this almost certainly represents a mild degree of demand ischemia. (4) Elevated serum creatinine: -Appears to have baseline approximately stage III CKD. Creatinine was improving then worsening after IV fluids were stopped, but family notes that he is barely drinking. After resuming IV fluids, his creatinine improved again. 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 (6) Diabetes mellitus: -Inpatient sugars were a little bit erratic but overall reasonable. His A1c was noted to be somewhat elevated. We had an extensive discussion, reiterat ed in writing, about the critical importance of lifestyle and management of type 2 diabetes. (7) Hyperlipidemia: - Continue home statin and ASA as prescribed. (8) HTN (hypertension): -Blood pressure is reasonable given the situation, discharge on home meds unchanged (9) CAD (coronary artery disease): - S/p CABG and stent placement in 2009. - Continue Plavix, ASA, statin, Lisinopril, Coreg as prescribed. - Did have mildly elevated troponin (see above mild demand ischemia), no other cardiac issues during this admission. (10) Peripheral vascular disease: - S/p stenting of left superficial femoral artery in March [address] Barcenas. - Continue Plavix, statin, ASA as prescribed - plan to transition to Xarelto 6 months post procedure per last cardiology note. (11) DVT prophylaxis: - Heparin q8hr utilized while here Dispo: Home, close PCP follow-up. Total Time Total Time Spent Total Time Spent (In Minutes): Greater than 30 Discharge Plan Discharge Items Patient Disposition: Home - Self-Care Reason For Visit: HYPOXIA Discharge Diagnosis: pneumonia Activity: Resume your previous activity Non-emergency contact: Primary Care Provider Call non-emergency contact if: you have any medication questions, your symptoms worsen and your temperature is above 101 Follow-up/Referrals: Pelon Renteria [Primary Care Provider] - 09/09/19 2:15 pm (Please, follow up with Dr. Renteria's associate, Briana Dunlap PA-C, on SaturdaySeptember 09 at 2:15 pm. *THIS APPOINTMENT WILL BE IN THEIR [facility].* If you have any questions or if you need to change this appointment, call their office at [phone].) Diet: Carb Consistent or DM2 Addtl Attending Provider Instructions: pneumonia -The main thing that landed you in the hospital was a pneumonia. This is an infection of your lungs by bacteria. Fortunately it is improving quite nicely. -We will need to finish out treatment with antibiotics with another week of an antibiotic twice a dayyour next dose should be in the morning tomorrow. -As we discussed, pneumonias do take quite a while to recover from. You will likely feel still somewhat sick with a cough for the next week or 2, and you could have a slowly resolving feeling of just being fatigued and run down that may slowly improve between now on . As long as you are seeing progress, unfortunately the slow recovery is quite normal. -For the next several days, we definitely want you to take it easy. If you feel like you are doing too much, you probably are. -If you have a tight cough, or not able to bring up mucus, or feel like he cannot quite get enough air, try a puff of your albuterol inhaler first. If that does not quickly help solve the problem, then we would like to have you back here in the hospital. diabetes -Your sugar control is unfortunately fairly bad. -Your A1c reading is 9.5. -Remember the main reason that we worry about all of this is that high sugars clog arteriesmeaning that the higher your sugars run, and the longer they run high, the more you are knocking off blood vessels that you cannot get back. -While blindness, foot numbness, and kidney failure are the most "famous" complications of diabetes, heart attacks and strokes are the most commonall of which being caused by high sugars clogging of small blood vessels to all of these organs. -Generally speaking, anytime your sugar is above about 150, your causing a degree of damage to your body. In terms of A1c readings (an A1c shows what your sugar has been doing over the last 3 months) anything above about 7.0 is worrisome for doing damage to your body as well -As we discussed, type 2 diabetes is almost entirely about bad carbohydrates. The more simple/starchy/sugary foods that you eat, the more you will spike a blood sugar, the more damage you due to your body. -Far more important than increasing medications is reducing the simple/starc hy/sugary carbohydrates. Start checking your sugars about 2 hours after you eat, and he will learn very quickly that things like bread, pasta, potatoes, in addition to sugary foods, are all leading to clog arteries. Again when you see that sugar after you eat, if sugar is above 150 reconsider ever eating that food again, or at least making it to treat. -Follow-up closely with your regular doctors otherwise probable sleep apnea -It appears you probably have sleep apnea. This means that when you sleep you stop breathing. It is not something that causes you to stop breathing and never wake up, but it is something that significantly disrupt sleep, making people feel more tired all the time than they need to. In addition to that, untreated sleep apnea over 10 years, can lead to lots of heart and lung diseases that can be avoided. -We will ask that you get set up for a sleep study. In order to get a CPAP unit at home, generally we need to have a sleep study showing sleep apnea to get the insurance company to cover it -As we discussed, nobody likes CPAP when they first started it, but once you get used to it it can be life-changing only good. When you get your CPAP unit at home, just assume that will take a month to get used to it, and once you do you may be surprised at how good you are feeling from getting better sleep kidney issues/hydration -You definitely need to drink more, you run the risk of kidney issues from running chronically dehydrated. -A reasonable goal would be to drink about 60 ounces of fluid a day. We will ask that you have appointment scheduled for follow-up for early next week to ensure you are recovering from the pneumonia. At that appointment, they will likely check lab work (CBC, BMP) to follow your progress as well. Pending Studies at Discharge: No Stand-Alone Forms: [facility] Medications and DC Order Prescriptions: New cefdinir 300 mg capsule 300 mg PO BID Qty: 14 RF: 0 Continued aspirin 81 mg tablet,delayed release (DR/EC) 81 mg PO DAILY RF: 0 carvedilol 6.25 mg tablet 6.25 mg PO BID RF: 0 cholecalciferol (vitamin D3) 400 unit capsule 400 units PO DAILY RF: 0 cinnamon bark [Cinnamon] 500 mg capsule 500 mg PO DAILY RF: 0 clopidogrel [Plavix] 75 mg tablet 75 mg PO DAILY RF: 0 insulin glargine [Lantus U-100 Insulin] 100 unit/mL solution 27 units SQ DAILY RF: 0 Lactobacillus acidoph-L.bulgar [Floranex] 1 million cell tablet 4 tab PO TID RF: 0 simvastatin 80 mg Tablet 80 mg PO HS RF: 0 metformin 1,000 mg Tablet 1,000 mg PO BID RF: 0 lisinopril 5 mg Tablet 5 mg PO DAILY RF: 0 albuterol sulfate 90 mcg/actuation HFA aerosol inhaler 2 puff inhalation UD PRN (Reason: Wheezing) RF: 0 Discharge Orders: Discharge Order (Routine); Ordered 09/01/19 Ordered By: Dung Michel Admission Data Admit Date/Time: 08/29/19 14:01 Attending Provider: Dung Michel Admit Provider: Nancy Martines Primary Care Provider: Pelon Renteria Other Providers: Nancy Martines Other Interventions: Discharge Summary Assessment (RN) Last Done: 09/01/19 13:08 DC Date/Time DO NOT enter until pt leaves facility: 09/01/19 15:19
== END 2019-09-01 15:19 | disposition home or self-care (01) | DRG 193 ==
LOC: ED 11:04 → 2N 14:01 → SUATTDRO 14:01 → 2N 14:40

== ENCOUNTER 2019-09-06 18:21 | Inpatient (IN) ==
[2019-09-06] MEDS ORDERED: ALBUT/IPRATROP 3MG/0.5MG NEB 3 ML VIAL NEB STA (20:07)
[2019-09-06 20:25] LABS: Basophils # (auto) 0.01 K/uL (0-0.2); Basophils % (auto) 0.1 %; Eosinophils # (auto) 0.06 K/uL (0-0.5); Eosinophils % (auto) 0.4 %; Hematocrit (blood only) 40.1 % (42-52); Hemoglobin 12.8 g/dL (14.0-18.0); Immature Granulocytes # (auto) 0.09 K/uL (0.00-0.02); Immature Granulocytes % (auto) 0.6 %; Lymphocytes # (auto) 1.41 K/uL (1.2-3.4); Lymphocytes % (auto) 9.2 %; Mean Corpuscular Hemoglobin 31.5 pg (25-34); Mean Corpuscular Hgb Conc 31.9 g/dL (32-36); Mean Corpuscular Volume 98.8 fL (80-100); Mean Platelet Volume 9.6 fL (7.4-10.4); Monocytes # (auto) 1.29 K/uL (0.11-0.59); Monocytes % (auto) 8.4 %; Neutrophils # (auto) 12.52 K/uL (1.4-6.5); Neutrophils % (auto) 81.3 %; Platelet Count 282 K/uL (130-400); RDW Coefficient of Variation 13.1 % (11.5-14.5); RDW Standard Deviation 47.2 fL (36.4-46.3); Red Blood Count 4.06 M/uL (4.7-6.1); White Blood Count 15.38 K/uL (4.8-10.8)
--- NOTE | 2019-09-06 20:47 | XRay Report ---
LEFT FOOT 3 VIEWS HISTORY: Left foot redness, infection, swelling COMPARISON: Left foot MRI 04/03/2019. Radiographs 05/29/2018. FINDINGS: Interval resection of the majority of the left fifth metatarsal and left toe. Cortical dest ruction at the fourth MTP joint consistent with a septic arthritis/osteomyelitis. Soft tissue swellin g with near complete absence at the distal phalanx of the third toe. This suggests an additional site of erosive change. Plantar heel spur. Vascular calcifications are noted. Diffuse soft tissue swellin g within the foot. No soft tissue gas identified. No radiopaque foreign bodies. IMPRESSION: 1. Cortical destruction/erosive change at the fourth MTP joint and distal phalanx of the third toe. T his is similar to the prior MRI and suggests a septic arthritis/osteomyelitis. 2. Prior resection of the majority of the fifth metatarsal. Electronically signed by: Nagi Paulson M.D. 09/06/2019 8:45 PM
[2019-09-06 20:49] LABS: Alanine Aminotransferase 51 U/L (12-78); Albumin Globulin Ratio 0.5 (0.9-2); Albumin Level 2.5 gm/dl (3.4-5.0); Alkaline Phosphatase 102 U/L (45-117); BUN Creatinine Ratio 19.4 (10-20); Bilirubin,Total 0.4 mg/dl (0.2-1); Blood Urea Nitrogen 25 mg/dl (7-18); Carbon Dioxide 29 mmol/L (21-32); Chloride 100 mmol/L (98-107); Creatinine Clr Calc Pharmacy 65.4 ml/min; Est GFR (African American) 65.4; Est GFR (Non-African American) 56.5; Glucose 316 mg/dl (70-99); Sodium 136 mmol/L (136-145); Total Protein 7.5 gm/dl (6.4-8.2); Troponin I 0.083 ng/ml (0-0.045)
--- NOTE | 2019-09-06 20:50 | XRay Report ---
XR chest 1V portable HISTORY: Dyspnea COMPARISON: Chest 08/29/2019. FINDINGS: No pneumothorax. The heart remains enlarged. There is progressive diffuse interstitial and vascular thickening. No pleural effusions. Poststernotomy changes. IMPRESSION: Progressive mild interstitial pulmonary edema. Electronically signed by: Nagi Paulson M.D. 09/06/2019 8:49 PM
[2019-09-06 21:15] LABS: C Reactive Protein 6.36 mg/dl (0-0.29)
[2019-09-06 21:18] LABS: INR 1.1 (0.9-1.1); Partial Thromboplastin Time 26.5 Seconds (21.0-31.0); Potassium 4.5 mmol/L (3.5-5.1); Prothrombin Time 11.2 Seconds (9.0-12.0)
[2019-09-06 21:24] LABS: Beta-Hydroxybutyrate 0.81 mg/dl (0.2-2.81)
[2019-09-06] MEDS ORDERED: FUROSEMIDE 20 MG in SYRINGE 0 ML IV ONE (21:45)
[2019-09-06] MEDS ORDERED: FUROSEMIDE 40 MG/4 ML VIAL IV ONE (21:58)
[2019-09-06] MEDS ORDERED: VANCOMYCIN CONSULT ACTIVE PRN (22:16)
[2019-09-06] MEDS ORDERED: VANCOMYCIN HCL 2,250 MG in SODIUM CHLORIDE 0.9% 500 ML IV ONE (22:16)
[2019-09-06] MEDS ORDERED: CEFEPIME 2,000 MG/20 ML VIAL IV STA (22:42)
--- NOTE | 2019-09-06 23:27 | History & Physical Report ---
Date of Service September 06, 2019 Assessment & Plan (1) Cellulitis of left foot: 69-year-old male with past history of diabetes, CAD, peripheral vascular disease, hypertension, left foot osteomyelitis status post amputation of fifth metatarsal presents with pain, swelling and redness of left foot. Cellulitis, left foot Treat with IV Vanco, cefepime considering history of osteomyelitis and diabetes Consider Ortho, infectious disease consult Left foot x-ray showed chronic erosive changes of MTP/distal third toe, similar to previous MRI, suggest septic arthritis/osteomyelitis Pulmonary edema Received dose of Lasix in the ED Left-sided rhonchi, recent admission for pneumonia discharged 09/01/2018, course of Cefdinir at [place], covered by abx above CKD stage III Stable Chronically elevated troponin setting of known CAD/CKD, 0.083> continue to trend PVD S/p stenting of left superficial femoral 03/2019 Continue Plavix CAD/hypertension/hyperlipidemia Continue carvedilol, aspirin, simvastatin, lisinopril Diabetes Continue Lantus, sliding scale insulin Hold metformin CODE STATUSfull DVT prophylaxisheparin FENdiabetic/heart healthy diet (2) Peripheral vascular disease: (3) CAD (coronary artery disease): (4) HTN (hypertension): (5) Hyperlipidemia: (6) Postoperative wound breakdown: (7) Surgical wound, non healing: (8) Foot osteomyelitis, left: History of Present Illness Primary Care Provider: Pelon Renteria 69-year-old male with past history of diabetes, CAD, peripheral vascular disease, hypertension, left foot osteomyelitis status post amputation of fifth metatarsal presents with pain, swelling and redness of left foot. Patient states that symptoms have been going on for the past day. He denies any fevers, chills. He was recently admitted and treated for pneumonia, discharged on 2018. Patient has a history of peripheral vascular disease with left superficial femoral stenting last March. He has had significant infections of the left foot and has had amputation of the fifth toe. He has had chronic issues with osteomyelitis of the fourth MTP and distal third toe. Allergies Allergy/AdvReac Type Severity Reaction Status Date / Time Penicillins Allergy Severe SEVERE RASH Verified 09/06/19 20:51 Home Medications Home Medications Medication Instructions Recorded Confirmed Type aspirin 81 mg tablet,delayed 81 mg PO DAILY 07/14/18 09/06/19 History release carvedilol 6.25 mg tablet 6.25 mg PO BID 07/14/18 09/06/19 History cholecalciferol (vitamin D3) 400 400 units PO DAILY 07/14/18 09/06/19 History unit capsule cinnamon bark 500 mg capsule 500 mg PO DAILY cap 07/14/18 09/06/19 History clopidogrel 75 mg tablet 75 mg PO DAILY 07/14/18 09/06/19 History insulin glargine (U- 100) 100 27 units SQ QPM ml 07/14/18 09/06/19 History unit/mL subcutaneous solution lisinopril 5 mg PO DAILY 04/15/19 09/06/19 History metformin 1,000 mg PO BID 04/15/19 09/06/19 History simvastatin 80 mg PO HS 04/15/19 09/06/19 History albuterol sulfate 2 puff INHALATION UD PRN 08/29/19 09/06/19 History cefdinir 300 mg PO BID #14 cap 09/01/19 09/06/19 Rx Past Med/Surg History Medical History CAD (coronary artery disease) (Chronic) Diabetes 1.5, managed as type 1 (Chronic) Dyslipidemia (Chronic) HTN (hypertension) (Chronic) Surgical History S/P CABG (coronary artery bypass graft) (Chronic) Stented coronary artery (Chronic) H/O amputation of lesser toe (Resolved) S/P CABG (coronary artery bypass graft) (Resolved) Family History Father Myocardial infarction Other No pertinent family history Social History Communication Ability: Effective Visual Impairment: Limited Hearing Ability: Normal 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 Beliefs That Will Affect Care: None marital status: single Current Living Situation: Alone 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 Feels Safe at Home: Yes Safety Concerns: Feels Safe At This Time Smoking Status: Never smoker Second Hand Exposure: No ; Hx Alcohol Use: Yes Alcohol type: beer Alcohol Intake Frequency Comment: 1-2 times a week Hx Substance Use: No Review of Systems Constitutional: no fever, no chills and no sweats Ear, Nose, Mouth, Throat: no nasal congestion, no post nasal drip, no nasal obstruction, no facial pain and no sinus pain/pressure Respiratory: no cough, no chest congestion and no dyspnea Cardiovascular: no chest pain, no dyspnea and no palpitations Gastrointestinal: no abdominal pain, no nausea, no vomiting and no diarrhea/loose stools Genitourinary: no dysuria, no urinary hesitancy and no hematuria Physical Exam Constitutional: WD/WN, vitals as above Eyes: PERRL, conjunctivae normal, anicteric sclerae ENMT: external ear and nose normal, oropharynx normal Neck: trachea midline, no thyromegaly Respiratory: + abnormal respiratory effort, no respiratory distress, no labored breathing, no retractions and does not use accessory muscles Auscultation: + rhonchi (left lung field ); no crackles, no rales and no wheezes Cardiovascular: RRR, no murmur, no edema Gastrointestinal (Abdomen): normal bowel sounds, soft, nontender, no hepatosplenomegaly Musculoskeletal: no cyanosis or clubbing, extremities motor strength 5/5 Skin: erythema, edema left lower extremity, callus noted on plantar surface of left foot, but no notable draining lesions. Neurologic: PERRL, EOMI, accommodation nl, no face palsy, no dysarthria Psychiatric: A+Ox3, euthymic affect Results & Data Vital Signs (Past 12 Hours) Vital Signs Temp Pulse Pulse Resp BP BP Pulse Ox 09/06/19 21:00 107 H 20 147/78 H 95 09/06/19 20:31 100 H 20 97 09/06/19 20:06 94 09/06/19 19:30 109 H 22 145/77 H 91 09/06/19 18:46 36.8 C 116 H 20 131/86 92 Code Status & VTE Plan VTE Prophylaxis Plan VTE Prophylaxis will be ordered: Yes Supervising Physician Co-Signing Physician Notes Attending addendum: I have physically seen this patient, have supervised the medical residents activities, and agree with the H&P unless as otherwise noted. Assessment and Plan: Diabetic left foot infection/cellulitis/osteomyelitis- Admit on vancomycin IV and Zosyn IV Will likely need PICC line and extended antibiotics as outpatient. Peripheral arterial disease/left superficial femoral serial stenting 03/2019- Continue clopidogrel. - CAD/hypertension- continue carvedilol, aspirin and lisinopril with hold parameters. Remainder of orders and notations as noted. PG Care Time/CCT Total # of Minutes Spent Total Time Spent with Patient: Total time spent is greater than 50% in coordination of care (as documented) at patient's floor/unit and/or counseling patient: Resident Activity Tracking Resident Involvement: Resident Care Provided Care Provided: Adult [facility] Medicine (1) Postoperative wound breakdown Encounter type: subsequent encounter Qualified Code(s): T81.31XD - Disruption of external operation (surgical) wound, not elsewhere classified, subsequent encounter (2) Surgical wound, non healing Encounter type: initial encounter Qualified Code(s): T81.89XA - Other complications of procedures, not elsewhere classified, initial encounter (3) Foot osteomyelitis, left Osteomyelitis type: other chronic Qualified Code(s): M86.672 - Other chronic osteomyelitis, left ankle and foot
[2019-09-07] MEDS ORDERED: ACETAMINOPHEN 325 MG TAB PO PRN (00:36)
[2019-09-07] MEDS ORDERED: ALBUTEROL HFA 8 GM INHALER INH PRN (00:36)
[2019-09-07] MEDS ORDERED: VANCOMYCIN CONSULT ACTIVE PRN (00:36)
[2019-09-07] MEDS ORDERED: POLYETHYLENE (MIRALAX) 17 GM PACK PO PRN (00:36)
--- NOTE | 2019-09-07 00:38 | Emergency Department Note ---
Entered by Tiffany Paredes acting as a scribe for Greg Zarate M.D. History of Present Illness General Chief complaint: Swelling/Edema to Extremity Stated complaint: BOTH LEGS ENEMA Time Seen by Provider: 09/06/19 19:56 Source: patient History of Present Illness Onset (ago): hour(s) (earlier today) Location: lower extremity (foot) and left Pain Consistency: + constant Maximum Pain Intensity: 8 Quality: + other (redness and swelling) Associated symptoms: + denies other symptoms (drainage in foot, changes in urine and stools), + cough, + shortness of breath and + other (swelling in legs, swelling in right foot); no fever/chills The patient is a 69 year old male who presents to the Emergency Room with complaints of constant redness and swelling in his left foot beginning today. The patient notes swelling in his legs and right foot as well. The patient reports shortness of breath and coughing. He denies drainage in his foot, fever, and changes to his urine and stools. The patient states he lost a toe on his left foot due to infection and had an ulcer on the foot previously. He reports being in the hospital last week for pneumonia. He notes currently taking antibiotics. He also reports using an albuterol inhaler at home. The patient reports taking aspirin and Plavix. He denies a history of smoking. He states is PCP is Dr. Renteria. Home Medications Home Medications Medication Instructions Recorded Confirmed Type aspirin 81 mg tablet,delayed 81 mg PO DAILY 07/14/18 09/06/19 History release carvedilol 6.25 mg tablet 6.25 mg PO BID 07/14/18 09/06/19 History cholecalciferol (vitamin D3) 400 400 units PO DAILY 07/14/18 09/06/19 History unit capsule cinnamon bark 500 mg capsule 500 mg PO DAILY cap 07/14/18 09/06/19 History clopidogrel 75 mg tablet 75 mg PO DAILY 07/14/18 09/06/19 History insulin glargine (U- 100) 100 27 units SQ QPM ml 07/14/18 09/06/19 History unit/mL subcutaneous solution lisinopril 5 mg PO DAILY 04/15/19 09/06/19 History metformin 1,000 mg PO BID 04/15/19 09/06/19 History simvastatin 80 mg PO HS 04/15/19 09/06/19 History albuterol sulfate 2 puff INHALATION UD PRN 08/29/19 09/06/19 History cefdinir 300 mg PO BID #14 cap 09/01/19 09/06/19 Rx Allergies Allergy/AdvReac Type Severity Reaction Status Date / Time Penicillins Allergy Severe SEVERE RASH Verified 09/06/19 20:51 Past Med/Surg History Medical History CAD (coronary artery disease) (Chronic) Diabetes 1.5, managed as type 1 (Chronic) Dyslipidemia (Chronic) HTN (hypertension) (Chronic) Surgical History S/P CABG (coronary artery bypass graft) (Chronic) Stented coronary artery (Chronic) H/O amputation of lesser toe (Resolved) S/P CABG (coronary artery bypass graft) (Resolved) Family History Father Myocardial infarction Other No pertinent family history Social History Communication Ability: Effective Visual Impairment: Limited 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 and A total of 10 systems reviewed and were otherwise negative Physical Exam Vital Signs Vital Signs - 24 hr 09/06/19 18:46 09/06/19 19:30 09/06/19 20:06 Temperature 36.8 C Temperature Source Oral Sepsis Recent Fever Within 48 Hours No Sepsis Action Taken by Nursing No Action Required Pulse Rate 116 H Pulse Rate [Right] 109 H Pulse Rhythm Regular Pulse Rhythm [Right] Pulse Strength Normal Pulse Strength [Right] Respiratory Rate 20 22 Respiratory Effort / Characteristics Non-Labored Spontaneous Respiratory Depth Normal Respiratory Pattern Regular Blood Pressure 131/86 Blood Pressure [Right Arm] 145/77 H Blood Pressure Mean 101 Blood Pressure Mean [Right Arm] 99 Blood Pressure Position Sitting Blood Pressure Position [Right Arm] Pulse Oximetry 92 91 94 Oxygen Delivery Method Room Air Room Air Room Air 09/06/19 20:31 09/06/19 21:00 Temperature Temperature Source Sepsis Recent Fever Within 48 Hours Sepsis Action Taken by Nursing Pulse Rate Pulse Rate [Right] 100 H 107 H Pulse Rhythm Pulse Rhythm [Right] Regular Pulse Strength Pulse Strength [Right] Normal Respiratory Rate 20 20 Respiratory Effort / Characteristics Spontaneous Non-Labored Spontaneous Respiratory Depth Normal Respiratory Pattern Regular Blood Pressure Blood Pressure [Right Arm] 147/78 H Blood Pressure Mean Blood Pressure Mean [Right Arm] 101 Blood Pressure Position Blood Pressure Position [Right Arm] Sitting Pulse Oximetry 97 95 Oxygen Delivery Method Room Air Room Air GENERAL: Awake, alert, in no distress HENT: Normocephalic, atraumatic. EYES: Normal conjunctiva. Sclera non-icteric. RESPIRATORY: Mild expiratory wheeze. Clear to auscultation. Normal respiratory effort. CARDIAC: Normal rate. Normal rhythm. Extremities warm and well perfused. GI: Mild abdominal distension. Soft. No tenderness to palpation. No rebound or guarding. RECTAL: Deferred. MUSCULOSKELETAL: Atraumatic. Chest examination reveals no tenderness. LOWER EXTREMITIES: Calves are equal size bilaterally and non-tender. Trace bilateral pedal edema. Amputation of 5th toe on left foot. Erythema and swelling of left 2nd, 3rd, and 4th toes. Erythema extends to left dorsal foot with bulla formation. NEURO: Normal sensorium. No sensory or motor deficits noted. No facial droop. SKIN: Warm and dry. No jaundice noted. Course 1954: Past medical records reviewed. The patient was evaluated in room A02. A complete history and physical exam was performed. 2137: Upon reevaluation, the patient was resting more comfortably. I discussed findings and results with the patient. 2239: Upon reevaluation, I discussed findings and results with the patient. He verbalized agreement of the treatment plan. I spoke with Dr. Malave of the [facility] Hospitalist Service. The patient will be evaluated for further management and care. Administered Medications Vancomycin HCl 2,250 mg/ (Sodium Chloride) 545 mls @ 200 mls/hr IV NOW ONE Stop: 09/07/19 00:59 Last Admin: 09/06/19 23:04 Dose: 200 mls/hr Documented by: [id number] Discontinued Medications Albuterol (Duoneb) 3 ml NEB NOW STA Stop: 09/06/19 20:08 Last Admin: 09/06/19 20:28 Dose: 3 ml Documented by: [id number] Furosemide (Lasix) Confirm Administered Dose 40 mg IV .STK-MED ONE Stop: 09/06/19 21:59 Last Admin: 09/06/19 22:04 Dose: 20 mg Documented by: [id number] Furosemide 20 mg/ Syringe 2 mls @ 4 mls/min IV ONE ONE Stop: 09/06/19 21:46 Last Admin: 09/06/19 22:05 Dose: Not Given Documented by: [id number] Cefepime HCl (Maxipime) 2,000 mg in 20 mls @ 5 mls/min IV NOW STA; Protocol Stop: 09/06/19 22:45 Last Admin: 09/06/19 23:04 Dose: 5 mls/min Documented by: [id number] Medical Decision Making Differential Diagnosis Differential diagnoses includes but is not limited to pneumonia, bronchitis, COPD/Asthma exacerbation, pneumothorax, pulmonary embolism, congestive heart failure, acute coronary syndrome. Differential diagnosis includes etiologies such as cellulitis, abscess, MRSA infection, DVT, necrotizing fasciitis, dermatitis, drug eruption, as well as others were entertained. Medical Records Attestation: I reviewed the patient's medical records. Home Medications Current Medication List: was personally reviewed by me Laboratory Data Attestation: I reviewed the patient's lab results. Result diagrams: 09/06/19 19:34 09/06/19 20:56 Lab Results 09/06/19 09/06/19 09/06/19 Range/Units 19:34 19:34 19:34 WBC 15.38 H (4.8-10.8) K/uL RBC 4.06 L (4.7-6.1) M/uL Hgb 12.8 L (14.0-18.0) g/dL Hct 40.1 L (42-52) % MCV 98.8 (80-100) fL MCH 31.5 (25-34) pg MCHC 31.9 L (32-36) g/dL RDW Std Deviation 47.2 H (36.4-46.3) fL RDW Coeff of Sarah 13.1 (11.5-14.5) % Plt Count 282 (130-400) K/uL MPV 9.6 (7.4-10.4) fL Immature Gran % (Auto) 0.6 % Neut % (Auto) 81.3 % Lymph % (Auto) 9.2 % [place] % (Auto) 8.4 % Eos % (Auto) 0.4 % Baso % (Auto) 0.1 % Immature Gran # (Auto) 0.09 H (0.00-0.02) K/uL Neut # (Auto) 12.52 H (1.4-6.5) K/uL Lymph # (Auto) 1.41 (1.2-3.4) K/uL [place] # (Auto) 1.29 H (0.11-0.59) K/uL Eos # (Auto) 0.06 (0-0.5) K/uL Baso # (Auto) 0.01 (0-0.2) K/uL PT Cancelled INR Cancelled APTT Cancelled PTT Ratio Cancelled Sodium 136 (136-145) mmol/L Potassium (3.5-5.1) mmol/L Chloride 100 (98-107) mmol/L Carbon Dioxide 29 (21-32) mmol/L Anion Gap 7.0 (3-11) BUN 25 H (7-18) mg/dl Creatinine 1.30 (0.6-1.4) mg/dl Est Cr Clr Drug Dosing 65.4 ml/min Est GFR ( Amer) 65.4 Est GFR (Non-Af Amer) 56.5 BUN/Creatinine Ratio 19.4 (10-20) Glucose 316 H* (70-99) mg/dl Calcium 9.0 (8.5-10.1) mg/dl Total Bilirubin 0.4 (0.2-1) mg/dl AST (15-37) U/L ALT 51 (12-78) U/L Alkaline Phosphatase 102 (45-117) U/L Troponin I 0.083 H* (0-0.045) ng/ml C-Reactive Protein 6.36 H (0-0.29) mg/dl Total Protein 7.5 (6.4-8.2) gm/dl Albumin 2.5 L (3.4-5.0) gm/dl Globulin 5.0 H (2.5-4.0) gm/dl Albumin/Globulin Ratio 0.5 L (0.9-2) Beta-Hydroxybutyric Acd TNP 09/06/19 09/06/19 Range/Units 20:56 20:56 WBC (4.8-10.8) K/uL RBC (4.7-6.1) M/uL Hgb (14.0-18.0) g/dL Hct (42-52) % MCV (80-100) fL MCH (25-34) pg MCHC (32-36) g/dL RDW Std Deviation (36.4-46.3) fL RDW Coeff of Sarah (11.5-14.5) % Plt Count (130-400) K/uL MPV (7.4-10.4) fL Immature Gran % (Auto) % Neut % (Auto) % Lymph % (Auto) % [place] % (Auto) % Eos % (Auto) % Baso % (Auto) % Immature Gran # (Auto) (0.00-0.02) K/uL Neut # (Auto) (1.4-6.5) K/uL Lymph # (Auto) (1.2-3.4) K/uL [place] # (Auto) (0.11-0.59) K/uL Eos # (Auto) (0-0.5) K/uL Baso # (Auto) (0-0.2) K/uL PT 11.2 INR 1.1 APTT 26.5 PTT Ratio 1.0 Sodium (136-145) mmol/L Potassium 4.5 (3.5-5.1) mmol/L Chloride (98-107) mmol/L Carbon Dioxide (21-32) mmol/L Anion Gap (3-11) BUN (7-18) mg/dl Creatinine (0.6-1.4) mg/dl Est Cr Clr Drug Dosing ml/min Est GFR ( Amer) Est GFR (Non-Af Amer) BUN/Creatinine Ratio (10-20) Glucose (70-99) mg/dl Calcium (8.5-10.1) mg/dl Total Bilirubin (0.2-1) mg/dl AST 35 (15-37) U/L ALT (12-78) U/L Alkaline Phosphatase (45-117) U/L Troponin I (0-0.045) ng/ml C-Reactive Protein (0-0.29) mg/dl Total Protein (6.4-8.2) gm/dl Albumin (3.4-5.0) gm/dl Globulin (2.5-4.0) gm/dl Albumin/Globulin Ratio (0.9-2) Beta-Hydroxybutyric Acd 0.81 Imaging Data Radiologist's Impression: Radiology results as stated below per my review and the radiologist's interpretation: XR chest 1V portable HISTORY: Dyspnea COMPARISON: Chest 08/29/2019. FINDINGS: No pneumothorax. The heart remains enlarged. There is progressive diffuse interstitial and vascular thickening. No pleural effusions. Poststernotomy changes. IMPRESSION: Progressive mild interstitial pulmonary edema. Electronically signed by: Nagi Paulson M.D. 09/06/2019 8:49 PM LEFT FOOT 3 VIEWS HISTORY: Left foot redness, infection, swelling COMPARISON: Left foot MRI 04/03/2019. Radiographs 05/29/2018. FINDINGS: Interval resection of the majority of the left fifth metatarsal and left toe. Cortical destruction at the fourth MTP joint consistent with a septic arthritis/osteomyelitis. Soft tissue swelling with near complete absence at the distal phalanx of the third toe. This suggests an additional site of erosive rex nge. Plantar heel spur. Vascular calcifications are noted. Diffuse soft tissue swelling within the foot. No soft tissue gas identified. No radiopaque foreign bodies. IMPRESSION: 1. Cortical destruction/erosive change at the fourth MTP joint and distal phalanx of the third toe. This is similar to the prior MRI and suggests a septic arthritis/osteomyelitis. 2. Prior resection of the majority of the fifth metatarsal. Electronically signed by: Nagi Paulson M.D. 09/06/2019 8:45 PM ECG Data Attestation: I personally reviewed and interpreted this ECG as follows: Indication: SOB/dyspnea Rate (beats per minute): 108 Rhythm: sinus tachycardia Findings: + other (normal axis) and + PVC; no ST depression, no ST elevation and no acute ischemic change Blood Pressure Blood Pressure Findings: Elevated blood pressure Blood Pressure Disposition: Referred to patients primary care provider MAURICIO Selby Patient is a 69-year-old gentleman with a past medical history including recent pneumonia, left toe diabetic foot ulcer, diabetes, hypertension, CAD, peripheral vascular disease currently on Plavix and aspirin with the plan for Xarelto upcoming presenting today complaining of soreness left foot with lower extremity edema. Patient has currently been taking his home medication of Omnicef. States just today he seems a bit more wheezy and short of breath. Does report that today he noted swelling of his left foot. May be a little bit more abdominal symptoms but no nausea vomiting or abdominal pain. Given a DuoNeb here to help with his respiratory symptoms. Chest x-ray to be completed. Recently had a CT of his chest excluding PE and do not feel the need to repeat at this time. Doubt DVT. Swelling slight blistering and erythema is fairly concentrated in the distal left foot and toes consistent with likely recurrent infection here. Again this is occurred while he is been on some Omnicef. Could represent MRSA picture. History of osteomyelitis here before. X-rays obtained here. Laboratory studies show an elevated leukocytosis compared to previous now at 15. Glucose is elevated and troponin elevation is noted though appears similar to previous levels and again the patient is not having active chest pain. No significant EKG changes and again believe this is likely more chronic. X-rays show some mild pulmonary edema and he postulate his low bit of fluid overload. X-rays of his foot show evidence of erosion of the fourth MTP joint and distal toe concerning for osteomyelitis. Clinically it does appear that he has an overlying cellulitis on this area as well. Given concern for some fluid overload a very small dose of Lasix was given. Given concerns for developing osteomyelitis and now overlying cellulitis believe admission for orthopedic consultation and additional antubiotic coverage with MRSA as indicated. Given a dose of vancomycin and cefepime here. Discussed with the patient and the hospitalist. Impression & Plan Foot osteomyelitis, left, Cellulitis of left foot, Wheeze, Fluid overload, uns pecified Discharge Plan Visit Data *Final* Discharge Date/Time: 09/06/19 23:19 Chief Complaint: Swelling/Edema to Extremity Stated Complaint: BOTH LEGS ENEMA ED Provider: Greg Zarate Discharge Problem: Foot osteomyelitis, left, Cellulitis of left foot, Wheeze, Fluid overload, unspecified Patient Disposition: Being Evaluated by Hospitalist Discharge Instructions Interventions: ED Discharge Assessment Last Done: 09/06/19 23:19 Discharge Problem: Foot osteomyelitis, left Qualifiers: Osteomyelitis type: unspecified type Qualified Code(s): M86.9 - Osteomyelitis, unspecified Fluid overload, unspecified Qualifiers: Hypervolemia type: unspecified Qualified Code(s): E87.70 - Fluid overload, unspecified The scribe's documentation has been prepared under my direction and personally reviewed by me in its entirety. I confirm that the note above accurately reflects all work, treatment, procedures, and medical decision making performed by me.
[2019-09-07] MEDS: SIMVASTATIN 80 MG TAB PO SCH ×2 (01:19→20:49)
[2019-09-07] MEDS: carvediloL 6.25 MG TAB PO SCH ×3 (01:19→20:49)
[2019-09-07] MEDS: CLOPIDOGREL BISULFATE 75 MG TAB PO SCH (07:17)
[2019-09-07] MEDS: lisinopriL 5 MG TAB PO SCH (07:18)
[2019-09-07] MEDS: ASPIRIN 81 MG ECTAB PO SCH (07:18)
[2019-09-07 07:44] LABS: Basophils # (auto) 0.01 K/uL (0-0.2); Basophils % (auto) 0.1 %; Eosinophils # (auto) 0.05 K/uL (0-0.5); Eosinophils % (auto) 0.3 %; Hematocrit (blood only) 36.9 % (42-52); Hemoglobin 12.1 g/dL (14.0-18.0); Immature Granulocytes # (auto) 0.08 K/uL (0.00-0.02); Immature Granulocytes % (auto) 0.5 %; Lymphocytes # (auto) 1.68 K/uL (1.2-3.4); Lymphocytes % (auto) 10.6 %; Mean Corpuscular Hemoglobin 31.7 pg (25-34); Mean Corpuscular Hgb Conc 32.8 g/dL (32-36); Mean Corpuscular Volume 96.6 fL (80-100); Mean Platelet Volume 9.2 fL (7.4-10.4); Monocytes # (auto) 1.47 K/uL (0.11-0.59); Monocytes % (auto) 9.3 %; Neutrophils % (auto) 79.2 %; Platelet Count 270 K/uL (130-400); RDW Coefficient of Variation 13.1 % (11.5-14.5); RDW Standard Deviation 45.6 fL (36.4-46.3); Red Blood Count 3.82 M/uL (4.7-6.1); White Blood Count 15.79 K/uL (4.8-10.8)
[2019-09-07 08:19] LABS: BUN Creatinine Ratio 19.3 (10-20); Creatinine Clr Calc Pharmacy 73.3 ml/min; Est GFR (African American) 75.1; Est GFR (Non-African American) 64.8
[2019-09-07 08:26] LABS: Troponin I 0.124 ng/ml (0-0.045)
[2019-09-07] MEDS ORDERED: VANCOMYCIN HCL 1,500 MG in SODIUM CHLORIDE 0.9% 500 ML IV SCH (09:00)
[2019-09-07] MEDS: INSULIN ASPART 100 UNITS/ML 3 ML PEN SC SCH ×4 (09:18→20:50)
[2019-09-07] MEDS: CEFEPIME 2,000 MG in SYRINGE 7.5 ML IV SCH ×2 (09:19→17:38)
[2019-09-07] MEDS: HEPARIN SOD 5,000 UNIT/0.5 ML VIAL SQ SCH ×2 (09:19→20:51)
--- NOTE | 2019-09-07 11:04 | Infectious Disease Consult ---
Date of Consultation September 07, 2019 Assessment & Plan (1) Cellulitis of left foot: can continue abx, tolerating well and responding, no recent cultures to guide therapy, no open wounds. will follow, likely transition to po abx upon d/c. History of Present Illness Attending Physician: Evelina Dias MD pt admitted with left foot cellulitis. he states he noticed increased erythema and pain yesterday, states improved today. was recently d/c. ID consulted due to h/o osteo in left foot. x ray in ER confirms this. He was last seen by ID (Dr. Tillman) at wound center in March. he was placed on bactrim and was to follow up in 3 weeks but did not follow back with wound center or ID. family at bedside, states he followed with ortho (Dr. Yang) as was told he could stop abx as wound closed and improved, has h/o 5th met ampuation. he has been off of abx since March and was doing well until yesterday. denies pain, no f/c. he was placed on vanco and cefepime. tolerating well. CXR negative, wbc 15. Most recent cultures grew skin allyson only - strap stitcher and corybacterium. he is tolerating well. no f/c. no abd pain, no n/v/d. no cp, sob, cough. Allergies Allergy/AdvReac Type Severity Reaction Status Date / Time Penicillins Allergy Severe SEVERE RASH Verified 09/06/19 20:51 Home Medications Home Medications Medication Instructions Recorded Confirmed Type aspirin 81 mg tablet,delayed 81 mg PO DAILY 07/14/18 09/06/19 History release carvedilol 6.25 mg tablet 6.25 mg PO BID 07/14/18 09/06/19 History cholecalciferol (vitamin D3) 400 400 units PO DAILY 07/14/18 09/06/19 History unit capsule cinnamon bark 500 mg capsule 500 mg PO DAILY cap 07/14/18 09/06/19 History clopidogrel 75 mg tablet 75 mg PO DAILY 07/14/18 09/06/19 History insulin glargine (U- 100) 100 27 units SQ QPM ml 07/14/18 09/06/19 History unit/mL subcutaneous solution lisinopril 5 mg PO DAILY 04/15/19 09/06/19 History metformin 1,000 mg PO BID 04/15/19 09/06/19 History simvastatin 80 mg PO HS 04/15/19 09/06/19 History albuterol sulfate 2 puff INHALATION UD PRN 08/29/19 09/06/19 History cefdinir 300 mg PO BID #14 cap 09/01/19 09/06/19 Rx Patient History Medical History CAD (coronary artery disease) (Chronic) Diabetes 1.5, managed as type 1 (Chronic) Dyslipidemia (Chronic) HTN (hypertension) (Chronic) Surgical History S/P CABG (coronary artery bypass graft) (Chronic) Stented coronary artery (Chronic) H/O amputation of lesser toe (Resolved) S/P CABG (coronary artery bypass graft) (Resolved) Family History Father Myocardial infarction Other No pertinent family history Social History Communication Ability: Effective Visual Impairment: Limited Hearing Ability: Normal 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 Beliefs That Will Affect Care: None marital status: single Current Living Situation: Alone 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 Feels Safe at Home: Yes Safety Concerns: Feels Safe At This Time Smoking Status: Never smoker Second Hand Exposure: No ; Hx Alcohol Use: Yes Alcohol type: beer Alcohol Intake Frequency Comment: 1-2 times a week Hx Substance Use: No Review of Systems Review of Systems: All systems reviewed & are unremarkable except as noted in HPI & below Physical Exam Constitutional: WD/WN, vitals as above Eyes: PERRL, conjunctivae normal, anicteric sclerae ENMT: external ear and nose normal, oropharynx normal Respiratory: normal respiratory effort, lungs clear to auscultation Cardiovascular: RRR, no murmur, no edema Gastrointestinal (Abdomen): normal bowel sounds, soft, nontender, no hepatosplenomegaly Musculoskeletal: no cyanosis or clubbing, extremities motor strength 5/5 Skin: no rashes, warm and dry + erythema (min, cold to touch, tender, incision closed) Psychiatric: A+Ox3, euthymic affect Results & Data Vital Signs (Past 12 Hours) Vital Signs Temp Pulse Pulse Resp BP BP Pulse Ox 09/07/19 07:34 36.8 C 96 H 16 134/79 93 09/07/19 03:59 37.2 C 98 H 21 124/76 93 09/06/19 23:19 100 H 20 119/82 94 PG Care Time/CCT Total # of Minutes Spent Total Time Spent with Patient: Total time spent is greater than 50% in coordination of care (as documented) at patient's floor/unit and/or counseling patient:
[2019-09-07] MEDS: VANCOMYCIN HCL 1,500 MG in SODIUM CHLORIDE 0.9% 500 ML IV SCH ×2 (11:10→22:26)
--- NOTE | 2019-09-07 13:54 | Family Medicine Progress Note ---
Date of Service September 07, 2019 Assessment & Plan (1) Cellulitis of left foot: 69-year-old male with past history of diabetes, CAD, peripheral vascular disease, hypertension, left foot osteomyelitis status post amputation of fifth metatarsal presents with pain, swelling and redness of left foot. Cellulitis, left foot IV vanc and cefepime ID consulted advised to continue with antibiotics Left foot x-ray showed chronic erosive changes of MTP/distal third toe, similar to previous imaging - no concern of acute infection. CKD stage III Stable Chronically elevated troponin setting of known CAD/CKD, 0.083>.124 believe this is likely demand related, no evidence for acute coronary syndrome. continue to trend to plateau PVD S/p stenting of left superficial femoral 03/2019 Continue Plavix CAD/hypertension/hyperlipidemia Continue carvedilol, aspirin, simvastatin, lisinopril Diabetes BSG high today into 300's appreciate pharmacy recommendations for giving intermediate dose insulin this afternoon and increasing sliding scale Hold metformin CODE STATUSfull DVT prophylaxisheparin FENdiabetic/heart healthy diet (2) Peripheral vascular disease: (3) CAD (coronary artery disease): (4) HTN (hypertension): (5) Hyperlipidemia: (6) Postoperative wound breakdown: (7) Surgical wound, non healing: (8) Foot osteomyelitis, left: Supervising Physician Co-Signing Physician Notes Resident Physician Supervision Note: I independently interviewed and examined the patient and verified the harmon history and physical, reviewed labs and image studies, discussed the case with the resident Dr. Sanchez and agree with the findings and care plan. Subjective Pepe Vincent is resting comfortably this morning. He tells me he is feeling much better since being in hospital. He was having subjective fever and chills off and on all day at home and since starting antibiotics he has been feeling well. He tells me he has been having nasal congestion, but denies any dyspnea. Review of Systems Review of Systems: All systems reviewed & are unremarkable except as noted in HPI & below Physical Exam Physical Exam: Constitutional: Well appearing 69 year old gentleman appearing stated age, no apparent distress Eyes: Anicteric sclerae, PERRLA Neck: Supple no masses Respiratory: Good air entry all lung cherry, b/l crackles at lung bases, chest expansion symmetric Cardiovascular: Heart sounds dual, regular rate, regular rhythm, no m/r/s/g GI: Abdomen soft/nontender Integumentary: Erythematous region on dorsum of left foot extending into lateral toes. Left foot and toes more swollen than right. Mildly tender, No subcutaneous emphysema, no calf tenderness Results & Data Vital Signs (Past 12 Hours) Vital Signs Temp Pulse Resp BP Pulse Ox 09/07/19 11:50 36.9 C 87 18 122/76 98 09/07/19 07:34 36.8 C 96 H 16 134/79 93 09/07/19 03:59 37.2 C 98 H 21 124/76 93 PG Care Time/CCT Total # of Minutes Spent Total Time Spent with Patient: Total time spent is greater than 50% in coordination of care (as documented) at patient's floor/unit and/or counseling patient: Resident Activity Tracking Resident Involvement: Resident Care Provided Care Provided: Adult Hospital Medicine (1) Postoperative wound breakdown Encounter type: subsequent encounter Qualified Code(s): T81.31XD - Disruption of external operation (surgical) wound, not elsewhere classified, subsequent encounter (2) Surgical wound, non healing Encounter type: initial encounter Qualified Code(s): T81.89XA - Other complications of procedures, not elsewhere classified, initial encounter (3) Foot osteomyelitis, left Osteomyelitis type: unspecified type Qualified Code(s): M86.9 - Osteomyelitis, unspecified
[2019-09-07] MEDS ORDERED: NovoLIN-N (NPH) PER UNIT CHARGE SC ONE (14:15)
--- NOTE | 2019-09-07 15:20 | Pharmacy Report ---
Pharmacy Abx Dose Short Note - Date of Service September 07, 2019 - Assessment & Plan Assessment * Mr Vincent is a 69 year old M receiving Vancomycin and Cefepime for treatment of L foot cellulitis/?osteomyelitis * PMH is significant for DM, CKD stage 3, CAD, PVD, hx L foot osteo s/p amputation of 5th metatarsal. Pt was recently treated with Cefdinir. * Foot XRay is concerning for septic arthritis/osteomyelitis. * On admission, WBC 15, SCr 1.3 * ID consult in place Plan Vancomycin * Vancomycin 2250mg (~21mg/kg) IV x1 dose, then * Vanc 1500mg (~14mg/kg) IV q12h * Vanc dosed aggressively initially for osteo/bone-joint indication, but will likely require adjustment d/t likelihood of accumulation in the obese pt population (BMI 35.9kg/m2). * Goal trough level for bone/joint infection: 18 to 20 mcg/mL * Trough level ordered for: tomorrow prior to the 3rd maintenance dose (which will not yet be steady state) Cefepime 2gm IV q8h Pharmacy will continue to follow and will adjust dose/frequency as necessary. Thank you.
[2019-09-07] MEDS: INSULIN GLARGINE SOLOSTAR 100 UNITS/ML 3 ML PEN SQ SCH (20:51)
[2019-09-08] MEDS: CEFEPIME 2,000 MG in SYRINGE 7.5 ML IV SCH ×3 (00:14→17:04)
[2019-09-08] MEDS: INSULIN ASPART 100 UNITS/ML 3 ML PEN SC SCH ×4 (08:12→20:54)
[2019-09-08] MEDS: carvediloL 6.25 MG TAB PO SCH ×2 (08:18→19:59)
[2019-09-08] MEDS: lisinopriL 5 MG TAB PO SCH (08:20)
[2019-09-08] MEDS: HEPARIN SOD 5,000 UNIT/0.5 ML VIAL SQ SCH ×2 (08:22→20:55)
[2019-09-08] MEDS: CLOPIDOGREL BISULFATE 75 MG TAB PO SCH (08:23)
[2019-09-08] MEDS: ASPIRIN 81 MG ECTAB PO SCH (08:24)
--- NOTE | 2019-09-08 08:43 | Family Medicine Progress Note ---
Date of Service September 08, 2019 Assessment & Plan (1) Cellulitis of left foot: 69-year-old male with past history of diabetes, CAD, peripheral vascular disease, hypertension, left foot osteomyelitis status post amputation of fifth metatarsal presents with pain, swelling and redness of left foot. Cellulitis, left foot Left foot x-ray showed chronic erosive changes of MTP/distal third toe, similar to previous imaging On IV vanc and cefepime ID consulted advised to continue with antibiotics With persistent redness and swelling - continue IV abx and follow. Cough Follow closely for sign of fluid overload. Received one dose of lasix in ED Consider echo CKD stage III Stable Chronically elevated troponin setting of known CAD/CKD, 0.083>.124 believe this is likely demand related, no evidence for acute coronary syndrome. continue to trend to plateau PVD S/p stenting of left superficial femoral in March of 2019 Continue Plavix CAD/hypertension/hyperlipidemia Continue carvedilol, aspirin, simvastatin, lisinopril Diabetes BSG high yesterday into 300's Gave one time dose of NPH insulin and increased sliding scale Blood sugar appears under better control today Hold metformin CODE STATUSfull DVT prophylaxisheparin FENdiabetic/heart healthy diet (2) Peripheral vascular disease: (3) CAD (coronary artery disease): (4) HTN (hypertension): (5) Hyperlipidemia: (6) Postoperative wound breakdown: (7) Surgical wound, non healing: (8) Foot osteomyelitis, left: Supervising Physician Co-Signing Physician Notes Resident Physician Supervision Note: I independently interviewed and examined the patient and verified the harmon histo ry and physical, reviewed labs and image studies, discussed the case with the resident Dr. Sanchez and agree with the findings and care plan. Subjective Mr. Vincent is resting comfortably this AM and tells me his foot feels a little better. He is tired of being cooped up in bed and is requesting to walk around the unit. He continues to have a cough and upper airway congestion. No fevers, no chills, no nausea/vomiting/diarrhea. Patient in very mild pain this morning. Review of Systems Review of Systems: All systems reviewed & are unremarkable except as noted in HPI & below Physical Exam Physical Exam: Constitutional: Well appearing 69 year old gentleman appearing stated age, no apparent distress Eyes: Anicteric sclerae, PERRLA Neck: Supple no masses Respiratory: Good air entry all lung cherry, b/l crackles loudest at bases, chest expansion symmetric Cardiovascular: Heart sounds dual, regular rate, regular rhythm, no m/r/s/g GI: Abdomen soft/nontender Integumentary: Erythematous region on dorsum of left foot extending into lateral toes. Left foot and toes more swollen than right. Erythema has darkened and toes appear less swollen. Mildly tender, No subcutaneous emphysema, no calf tenderness Results & Data Vital Signs (Past 12 Hours) Vital Signs Temp Pulse Pulse Resp BP Pulse Ox 09/08/19 07:40 36.3 C L 91 H 20 144/82 H 93 09/08/19 03:48 37.0 C 79 18 155/92 H 91 09/08/19 00:16 78 09/08/19 00:00 37.0 C 92 H 20 143/89 H 95 PG Care Time/CCT Total # of Minutes Spent Total Time Spent with Patient: Total time spent is greater than 50% in coordination of care (as documented) at patient's floor/unit and/or counseling patient: Resident Activity Tracking Resident Involvement: Resident Care Provided Care Provided: Adult Hospital Medicine (1) Postoperative wound breakdown Encounter type: subsequent encounter Qualified Code(s): T81.31XD - Disruption of external operation (surgical) wound, not elsewhere classified, subsequent encounter (2) Surgical wound, non healing Encounter type: initial encounter Qualified Code(s): T81.89XA - Other complications of procedures, not elsewhere classified, initial encounter (3) Foot osteomyelitis, left Osteomyelitis type: unspecified type Qualified Code(s): M86.9 - Osteomyelitis, unspecified
[2019-09-08] MEDS ORDERED: VANCOMYCIN TROUGH ONE (09:30)
[2019-09-08 09:34] LABS: Basophils # (auto) 0.01 K/uL (0-0.2); Basophils % (auto) 0.1 %; Eosinophils # (auto) 0.06 K/uL (0-0.5); Eosinophils % (auto) 0.4 %; Hematocrit (blood only) 36.2 % (42-52); Hemoglobin 11.6 g/dL (14.0-18.0); Immature Granulocytes # (auto) 0.05 K/uL (0.00-0.02); Immature Granulocytes % (auto) 0.3 %; Lymphocytes # (auto) 1.01 K/uL (1.2-3.4); Mean Corpuscular Hemoglobin 31.4 pg (25-34); Mean Corpuscular Volume 98.1 fL (80-100); Mean Platelet Volume 9.5 fL (7.4-10.4); Monocytes # (auto) 0.96 K/uL (0.11-0.59); Monocytes % (auto) 6.6 %; Neutrophils # (auto) 12.35 K/uL (1.4-6.5); Neutrophils % (auto) 85.6 %; Platelet Count 246 K/uL (130-400); RDW Coefficient of Variation 13.1 % (11.5-14.5); RDW Standard Deviation 47.3 fL (36.4-46.3); Red Blood Count 3.69 M/uL (4.7-6.1); White Blood Count 14.44 K/uL (4.8-10.8)
[2019-09-08 10:08] LABS: BUN Creatinine Ratio 18.4 (10-20); Calcium 8.6 mg/dl (8.5-10.1); Creatinine Clr Calc Pharmacy 65.9 ml/min; Est GFR (African American) 67.3; Est GFR (Non-African American) 58.1; Potassium 3.8 mmol/L (3.5-5.1)
[2019-09-08 10:24] LABS: Beta-Hydroxybutyrate 1.61 mg/dl (0.2-2.81)
--- NOTE | 2019-09-08 10:38 | Pharmacy Report ---
Pharmacy Abx Dose Short Note - Date of Service September 08, 2019 - Assessment & Plan Assessment 69 year old M receiving vancomycin/cefepime for treatment of left foot cellulitis/?osteo Day # 2-3 of antimicrobial therapy. Plan Vancomycin * Trough level of 18.5 mcg/mL is therapeutic * Continue dose of 1500 mg IV every 12 hours * Patient at risk for accumulation/not quite at steady state therefore will check another trough tomorrow AM * Goal trough level 15-20 mcg/mL * Trough ordered for 09/09 @ 0930 Pharmacy will continue to follow and will adjust dose/frequency as necessary. Thank you.
[2019-09-08] MEDS: VANCOMYCIN HCL 1,500 MG in SODIUM CHLORIDE 0.9% 500 ML IV SCH ×2 (10:49→22:06)
--- NOTE | 2019-09-08 13:50 | Infectious Disease Progress Nt ---
Date of Service September 08, 2019 Assessment & Plan (1) Cellulitis of left foot: can continue abx, tolerating well and responding, no recent cultures to guide therapy, no open wounds. will follow, likely transition to po abx upon d/c - suggest bactrim ds 1 po bid x 14 days Subjective remains on vanco and cefepime, tolerating well. afebrile. no new labs, no micro to review. blood sugars still elevated . Results & Data Vital Signs (Past 12 Hours) Vital Signs Temp Pulse Resp BP Pulse Ox 09/08/19 11:53 37.6 C H 98 H 21 149/94 H 93 09/08/19 07:40 36.3 C L 91 H 20 144/82 H 93 09/08/19 03:48 37.0 C 79 18 155/92 H 91 PG Care Time/CCT Total # of Minutes Spent Total Time Spent with Patient: Total time spent is greater than 50% in coordination of care (as documented) at patient's floor/unit and/or counseling patient:
--- NOTE | 2019-09-08 15:08 | XRay Report ---
SINGLE VIEW CHEST CLINICAL HISTORY: Hypoxia. FINDINGS: An AP, portable, upright chest radiograph is compared to study dated 09/06/2019 and correla antonio with chest CT dated 08/29/2019. The examination is degraded by portable technique and patient rot ation. The patient is status post midline sternotomy. The heart is enlarged noting atherosclerotic ca lcification of the thoracic aorta. There is pulmonary vascular congestion. Small pleural effusions ar e suspected. There is airspace consolidation at the left lung base. No pneumothorax is seen. The skel etal structures are osteopenic. The bony thorax is grossly intact. IMPRESSION: 1. Cardiomegaly with evidence of congestive failure. This is unchanged to modestly improved from yest erday. 2. Suspect small pleural effusions. 3. Airspace consolidation is noted at the left lung base. This could present atelectasis, asymmetric edema, or a superimposed infectious/inflammatory pneumonitis. Clinical correlation will be required. Electronically signed by: Lex Lira M.D. 09/08/2019 3:07 PM
[2019-09-08] MEDS ORDERED: FUROSEMIDE 20 MG in SYRINGE 0 ML IV SCH (15:30)
[2019-09-08] MEDS: SIMVASTATIN 80 MG TAB PO SCH (19:59)
[2019-09-08] MEDS: INSULIN GLARGINE SOLOSTAR 100 UNITS/ML 3 ML PEN SQ SCH (20:55)
[2019-09-09] MEDS: CEFEPIME 2,000 MG in SYRINGE 7.5 ML IV SCH ×2 (01:05→07:56)
[2019-09-09] MEDS: carvediloL 6.25 MG TAB PO SCH (07:54)
[2019-09-09] MEDS: CLOPIDOGREL BISULFATE 75 MG TAB PO SCH (07:54)
[2019-09-09] MEDS: lisinopriL 5 MG TAB PO SCH (07:54)
[2019-09-09] MEDS: HEPARIN SOD 5,000 UNIT/0.5 ML VIAL SQ SCH (07:54)
[2019-09-09] MEDS: ASPIRIN 81 MG ECTAB PO SCH (07:55)
[2019-09-09 07:57] LABS: Basophils # (auto) 0.01 K/uL (0-0.2); Basophils % (auto) 0.1 %; Eosinophils # (auto) 0.09 K/uL (0-0.5); Eosinophils % (auto) 0.5 %; Hematocrit (blood only) 37.1 % (42-52); Hemoglobin 11.5 g/dL (14.0-18.0); Immature Granulocytes # (auto) 0.05 K/uL (0.00-0.02); Immature Granulocytes % (auto) 0.3 %; Lymphocytes # (auto) 1.33 K/uL (1.2-3.4); Mean Corpuscular Hemoglobin 31.3 pg (25-34); Mean Corpuscular Volume 100.8 fL (80-100); Mean Platelet Volume 9.1 fL (7.4-10.4); Monocytes # (auto) 1.11 K/uL (0.11-0.59); Monocytes % (auto) 6.7 %; Neutrophils # (auto) 14.05 K/uL (1.4-6.5); Neutrophils % (auto) 84.4 %; Platelet Count 248 K/uL (130-400); RDW Coefficient of Variation 13.2 % (11.5-14.5); RDW Standard Deviation 48.6 fL (36.4-46.3); Red Blood Count 3.68 M/uL (4.7-6.1); White Blood Count 16.64 K/uL (4.8-10.8)
[2019-09-09] MEDS: INSULIN ASPART 100 UNITS/ML 3 ML PEN SC SCH ×2 (08:04→12:36)
[2019-09-09 08:25] LABS: BUN Creatinine Ratio 17.4 (10-20); Calcium 8.6 mg/dl (8.5-10.1); Creatinine Clr Calc Pharmacy 62.1 ml/min; Est GFR (African American) 62.5; Est GFR (Non-African American) 53.9; Potassium 4.3 mmol/L (3.5-5.1)
[2019-09-09] MEDS ORDERED: VANCOMYCIN TROUGH ONE (09:30)
[2019-09-09] MEDS: VANCOMYCIN HCL 1,500 MG in SODIUM CHLORIDE 0.9% 500 ML IV SCH (09:46)
[2019-09-09 12:29] VITALS: PULSE 87; TEMP 98.1; O2SAT 95
--- NOTE | 2019-09-09 13:19 | Pharmacy Report ---
Pharmacy Abx Dose Short Note - Date of Service September 09, 2019 - Assessment & Plan Assessment 69 year old M receiving vancomycin/cefepime for treatment of foot cellulitis Day # 4 of antimicrobial therapy. Plan Vancomycin * Trough level of 19.8 mcg/mL is therapeutic, however patient at risk for further accumulation and treating cellulitis, therefore will slightly reduce dose * Change to 1250 mg IV every 12 hours * Goal trough level 10-20 mcg/mL * Will order trough for 09/11 if patient continues on IV antibiotics Pharmacy will continue to follow and will adjust dose/frequency as necessary. Thank you.
--- NOTE | 2019-09-09 15:06 | Discharge Summary ---
Date of Service September 09, 2019 Admission HPI Per Admitting Provider 69-year-old male with past history of diabetes, CAD, peripheral vascular disease, hypertension, left foot osteomyelitis status post amputation of fifth metatarsal presents with pain, swelling and redness of left foot. Patient states that symptoms have been going on for the past day. He denies any fevers, chills. He was recently admitted and treated for pneumonia, discharged on September 01, 2019. Patient has a history of peripheral vascular disease with left superficial femoral stenting last March. He has had significant infections of the left foot and has had amputation of the fifth toe. He has had chronic issues with osteomyelitis of the fourth MTP and distal third toe. Admission Exam Per Admitting Provider Constitutional: WD/WN, vitals as above Eyes: PERRL, conjunctivae normal, anicteric sclerae ENMT: external ear and nose normal, oropharynx normal Neck: trachea midline, no thyromegaly Respiratory: + abnormal respiratory effort, no respiratory distress, no labored breathing, no retractions and does not use accessory muscles Auscultation: + rhonchi (left lung field ); no crackles, no rales and no wheezes Cardiovascular: RRR, no murmur, no edema Gastrointestinal (Abdomen): normal bowel sounds, soft, nontender, no hepatosplenomegaly Musculoskeletal: no cyanosis or clubbing, extremities motor strength 5/5 Skin: erythema, edema left lower extremity, callus noted on plantar surface of left foot, but no notable draining lesions. Neurologic: PERRL, EOMI, accommodation nl, no face palsy, no dysarthria Psychiatric: A+Ox3, euthymic affect Principal Diagnosis Cellulitis left foot Discharge Exam Constitutional: Well appearing 69 year old gentleman appearing stated age, no apparent distress Eyes: Anicteric sclerae, PERRLA Neck: Supple no masses Respiratory: Good air entry all lung cherry, b/l crackles loudest at bases, chest expansion symmetric Cardiovascular: Heart sounds dual, regular rate, regular rhythm, no m/r/s/g GI: Abdomen soft/nontender Integumentary: Erythematous region on dorsum of left foot extending into lateral toes. Left foot and toes more swollen than right. Erythema has darkened and toes appear less swollen. Mildly tender, No subcutaneous emphysema, no calf tenderness Discharge Data Allergies Allergy/AdvReac Type Severity Reaction Status Date / Time Penicillins Allergy Severe SEVERE RASH Verified 09/06/19 20:51 Consultations 09/06/19 23:08 ED Decision to Admit Stat 09/07/19 00:36 Consult Case Management - Discharge Planning Routine 09/07/19 10:00 Consult Infectious Diseases Routine Hospital Course (1) Cellulitis of left foot: 69-year-old male with past history of diabetes, CAD, peripheral vascular disease, hypertension, left foot osteomyelitis status post amputation of fifth metatarsal presents with pain, swelling and redness of left foot. Cellulitis, left foot Started patient on IV vanc and cefepimeon day of admission 09/06 Left foot x-ray showed chronic erosive changes of MTP/distal third toe, similar to previous imaging Consulted ID, as patient is responding and there is no wound or bony tenderness patient will likely not need vascular or ortho at this time Transitioned to oral bactrim DS BID for 14 days Arranged for outpatient ID follow up Recommend PCP follow up within next week to assess cellulitis and make sure he is continuing to improve Cough/SOB - sec to acute pulmonary edema Treated with dose of lasix in ED and repeat dose on the floor. Echo done - EF 45-50%. dilated right heart. diuresed well. Symptoms improved. outpatient f/u. CKD stage III Stable Chronically elevated troponin setting of known CAD/CKD, 0.083>.124 before dropping back to .11 believe this is likely demand related, no evidence for acute coronary syndrome. continue to trend to plateau PVD S/p stenting of left superficial femoral in March of 2019 Continue Plavix CAD/hypertension/hyperlipidemia Continue carvedilol, aspirin, simvastatin, lisinopril Diabetes BSG high throughout stay will continue metformin and follow up with PCP for tighter control. Infection probably making him transiently more poorly controlled. Total Time Total Time Spent Total Time Spent (In Minutes): See Attending attestation Discharge Plan Discharge Items Patient Disposition: Home - Self-Care Reason For Visit: CELLULITIS / OSTEOMYELITIS Discharge Diagnosis: Cellulitis Activity: Resume your previous activity Non-emergency contact: Primary Care Provider Call non-emergency contact if: you have any medication questions and your symptoms worsen Follow-up/Referrals: Claudia Bhakta DO [Physician] - 09/22/19 10:15 am (Please, follow up at [facility] Infectious Disease Office with Dr. Delia Bhakta on SaturdaySeptember 22 at 10:15 am. *The office is located in [address] of [facility]. This is the big building next to this hospital. If you need to change this appointment, call the office at [phone].) Pelon Renteria [Primary Care Provider] - 09/14/19 10:00 am (Please, follow up at [facility] Office with Dr. Renteria's associate, Briana Dunlap PA-C, on SaturdaySeptember 14 at 10:00 am. *If you need to change this appointment, call their office at [phone].) Diet: Carb Consistent or DM2 Addtl Attending Provider Instructions: Mr. Vincent, It was our pleasure to take care of you here at [facility] for your cellulitis. We believe you have gotten this infection in the superficial skin in your foot and we have treated you here with Intravenous antibiotics. We will be sending you home with a fourteen day course of bactrim to be taken twice a day. This will be sent to your pharmacy. You will follow up with your primary care provider and infectious disease to ensure that this resolves properly. If you have worsening fevers or chills, please return to medical care. Pending Studies at Discharge: No Stand-Alone Forms: My [facility], Smoking Cessation Medications and DC Order Prescriptions: New sulfamethoxazole-trimethoprim [Bactrim DS] 800-160 mg tablet 1 tab PO BID 14 Days Qty: 28 RF: 0 Continued aspirin 81 mg tablet,delayed release (DR/EC) 81 mg PO DAILY RF: 0 carvedilol 6.25 mg tablet 6.25 mg PO BID RF: 0 cholecalciferol (vitamin D3) 400 unit capsule 400 units PO DAILY RF: 0 cinnamon bark [Cinnamon] 500 mg capsule 500 mg PO DAILY RF: 0 clopidogrel [Plavix] 75 mg tablet 75 mg PO DAILY RF: 0 insulin glargine [Lantus U-100 Insulin] 100 unit/mL solution 27 units SQ QPM RF: 0 simvastatin 80 mg Tablet 80 mg PO HS RF: 0 metformin 1,000 mg Tablet 1,000 mg PO BID RF: 0 lisinopril 5 mg Tablet 5 mg PO DAILY RF: 0 albuterol sulfate 90 mcg/actuation HFA aerosol inhaler 2 puff inhalation UD PRN (Reason: Wheezing) RF: 0 Discontinued cefdinir 300 mg capsule 300 mg PO BID Qty: 14 RF: 0 Discharge Orders: Discharge Order (Routine); Ordered 09/09/19 Ordered By: Estuardo Sanchez Admission Data Admit Date/Time: 09/06/19 23:00 Attending Provider: Evelina Dias Admit Provider: Nathan Cody Primary Care Provider: Pelon Renteria Other Providers: Satinder Malave ; Thomas Tillman Other Interventions: Discharge Summary Assessment (RN) Last Done: 09/09/19 15:23 DC Date/Time DO NOT enter until pt leaves facility: 09/09/19 16:08 Supervising Physician Co-Signing Physician Notes Resident Physician Supervision Note: I independently interviewed and examined the patient and verified the harmon history and physical, reviewed labs and image studies, discussed the case with the resident Dr. Sanchez and agree with the findings and care plan. Resident Activity Tracking Resident Involvement: Resident Care Provided Care Provided: Adult Hospital Medicine
[2019-09-09 15:25] VITALS: BP 143/87
[2019-09-09] MEDS ORDERED: VANCOMYCIN HCL 1,250 MG in SODIUM CHLORIDE 0.9% 250 ML IV SCH (22:00)
== END 2019-09-09 16:08 | disposition home health service (06) | DRG 638 ==
LOC: ED 18:21 → 2N 23:00 → SUATTDRO 23:00 → 2N 23:19